=== PATIENT | female | born 1950 | race Hispanic/Latino ===

== ENCOUNTER → 2018-09-03 | Day surgery (SDC) | payer MEDICARE ==
[2018-09-01 14:16] LABS: BASOPHILS % 0.4 % (0.0-1.0); EOSINOPHILS # (AUTO) 0.1 (0.0-0.4); EOSINOPHILS % 2.9 % (0.0-6.0); HEMATOCRIT 37.1 % (34.2-44.1); HEMOGLOBIN 12.5 g/dL (12.0-16.0); LYMPHOCYTES % 34.1 % (18.0-39.1); MEAN CORPUSCULAR HEMOGLOBIN 32.2 pg (28-32); MEAN CORPUSCULAR HGB CONC 33.7 g/dL (31-35); MEAN CORPUSCULAR VOLUME 95.6 fL (81-99); MONOCYTES # (AUTO) 0.4 (0.2-0.8); MONOCYTES % 15.4 % (4.4-11.3); NEUTROPHILS # (AUTO) 1.3 (2.1-6.9); NEUTROPHILS % 47.2 % (38.7-80.0); PLATELET COUNT 97 x10e3/uL (140-360); RED BLOOD COUNT 3.88 x10e6/uL (3.6-5.1); RED CELL DISTRIBUTION WIDTH 14.8 % (11.7-14.4)
[2018-09-01 14:29] LABS: INR 1.19; PROTHROMBIN TIME 16.2 seconds (11.9-14.5)
[2018-09-01 14:30] LABS: PARTIAL THROMBOPLASTIN TIME 38.9 seconds (23.8-35.5)
[2018-09-01 14:37] LABS: ALANINE AMINOTRANSFERASE 22 IU/L (0-55); ALBUMIN/GLOBULIN RATIO 0.7 (0.8-2.0); ALKALINE PHOSPHATASE 192 IU/L (40-150); ANION GAP 9.1 mmol/L (8-16); BLOOD UREA NITROGEN 17 mg/dL (7-26); BUN/CREATININE RATIO 24 (6-25); CALCIUM 8.9 mg/dL (8.4-10.2); CARBON DIOXIDE 27 mmol/L (22-29); CHLORIDE 102 mmol/L (98-107); CREATININE, SERUM 0.72 mg/dL (0.57-1.11); EST GLOMERULAR FILTRATION RATE > 60 ML/MIN (60-); GLUCOSE 239 mg/dL (74-118); POTASSIUM 4.1 mmol/L (3.5-5.1); SODIUM 134 mmol/L (136-145)
[~2018-09-03] MED LIST: AZATHIOPRINE50 MG PO; CALCIUM + VITA1 EACH PO; CEFTRIAXONE SOD 1 GM/NS 50 ML 50 ML IV ONE; GENERLAC10 GM/15 M PO; IOPAMIDOL 610MG/1ML 300 MG/ML VIAL IV ONE; LIDOCAINE HCL 2% LOCAL INJ 5 ML SDV VIAL INJ ONE; LOSARTAN POTASS25 MG PO; METFORMIN HCL500 MG PO; METOPROLOL SUCC25 MG PO; MIDAZOLAM HCL 2 MG/2 ML VIAL ONE; OMEPRAZOLE40 MG PO; ONDANSETRON HCL INJ 2MG/ML 2ML 2 MG/ML VIAL ONE; PROPOFOL IV EMULSION 10 MG/ML 20 ML VIAL ONE; SEVOFLURANE INHAL SOLN 250 ML PEN BTL ONE; VITAMIN C500 M1 PO
--- OUTSIDE RECORDS SUMMARY | 2018-09-03 06:31 | XMS REPORT | Clinical Summary ---
Author Author TOSHIA [facility] Address Unknown Phone Unavailable Care Team Providers Care Senior Staff Accountant Name Role Phone Mando--Feliz Carpenter PCP Allergies No Known Allergies Medications End Date Status Medication Sig Dispensed Refills Start Date Active metFORMIN (GLUCOPHAGE-XR) Take 500 mg 0 500 MG 24 hr tablet by mouth 4 daily. Active metoprolol (TOPROL-XL) 25 Take 25 mg by 0 MG 24 hr tablet mouth daily. 4 Active loratadine (CLARITIN) 10 Take 10 mg by 0 mg tablet mouth daily. 4 Active calcium carbonate-vitamin Take 2 0 D3 (CALCIUM 600 WITH tablets by VITAMIN D3) 600 mouth daily. mg(1,500mg) -500 unit Cap Active omeprazole (PRILOSEC) 40 Take 40 mg by 0 MG capsule mouth daily as needed . Active lactulose (CHRONULAC) 10 Take 20 g by 0 gram/15 mL (15 mL) mouth 2 (two) solution times daily. 11/19/2018 Active azaTHIOprine (IMURAN) 50 Take 1 tablet 90 tablet 2 mg tabletIndications: (50 mg total) 8 Metabolic syndrome, by mouth Immunity status testing, daily. Cirrhosis of liver without ascites, unspecified hepatic cirrhosis type (HCC), Autoimmune hepatitis (HCC), Cancer screening Active rifAXIMin 550 mg Take 1 tablet 60 tablet 11 TabIndications: Cirrhosis (550 mg 8 of liver without ascites, total) by unspecified hepatic mouth 2 (two) cirrhosis type (HCC), times daily. Portal hypertension (HCC), Hepatic encephalopathy (HCC), Secondary esophageal varices without bleeding (HCC), Autoimmune hepatitis (HCC), Other fatigue, Weight gain, Immunity status testing Active losartan (COZAAR) 25 MG 0 tabletIndications: 8 Cirrhosis of liver without ascites, unspecified hepatic cirrhosis type (HCC), Portal hypertension (HCC), Hepatic encephalopathy (HCC), Secondary esophageal varices without bleeding (HCC), Autoimmune hepatitis (HCC), Other fatigue, Weight gain, Immunity status testing Active hydroxychloroquine 400 mg=2 tab, 0 (PLAQUENIL) 200 mg PO,BID , # 60 8 tabletIndications: tab, 0 Cirrhosis of liver Refill(s) without ascites, unspecified hepatic cirrhosis type (HCC), Portal hypertension (HCC), Hepatic encephalopathy (HCC), Secondary esophageal varices without bleeding (HCC), Autoimmune hepatitis (HCC), Other fatigue, Weight gain, Immunity status testing 05/24/2019 Active spironolactone Take 1 tablet 30 tablet 5 (ALDACTONE) 50 MG (50 mg total) 8 tabletIndications: by mouth Cirrhosis of liver daily. without ascites, unspecified hepatic cirrhosis type (HCC), Portal hypertension (HCC), Hepatic encephalopathy (HCC), Secondary esophageal varices without bleeding (HCC), Autoimmune hepatitis (HCC), Other fatigue, Weight gain, Immunity status testing 05/24/2019 Active furosemide (LASIX) 20 MG Take 1 tablet 30 tablet 5 tabletIndications: (20 mg total) 8 Cirrhosis of liver by mouth without ascites, daily. unspecified hepatic cirrhosis type (HCC), Portal hypertension (HCC), Hepatic encephalopathy (HCC), Secondary esophageal varices without bleeding (HCC), Autoimmune hepatitis (HCC), Other fatigue, Weight gain, Immunity status testing Active rifAXIMin 550 mg Take 1 tablet 60 tablet 11 TabIndications: Cirrhosis (550 mg 8 of liver without ascites, total) by unspecified hepatic mouth 2 (two) cirrhosis type (HCC), times daily. Portal hypertension (HCC), Hepatic encephalopathy (HCC), Secondary esophageal varices without bleeding (HCC), Autoimmune hepatitis (HCC), Other fatigue, Weight gain, Immunity status testing 05/24/2018 Discontinued lisinopril Take 5 mg by 0 (PRINIVIL,ZESTRIL) 5 MG mouth daily. 5 tablet 05/24/2018 Discontinued lactulose (CEPHULAC) 10 Take 10 g by 0 gram packet mouth 2 (two) times daily. 05/24/2018 Discontinued rifAXIMin 550 mg Tab Take 550 mg 0 by mouth 2 (two) times daily. 11/19/2017 Discontinued azaTHIOprine (IMURAN) 50 Take 1 tablet 90 tablet 1 mg tabletIndications: (50 mg total) 7 Metabolic syndrome, by mouth Immunity status testing, daily. Cirrhosis of liver without ascites, unspecified hepatic cirrhosis type (HCC) Active Problems Problem Noted Date Autoimmune hepatitis 12/12/2017 DIXON (nonalcoholic steatohepatitis) 12/12/2017 Cirrhosis 11/22/2016 Last Assessment & Plan: Diagnosed by liver biopsy in 2002. Her cirrhosis is decompensated with hepatic encephalopathy. Etiology of her cirrhosis is uncertain. Possible differentials are non-alcoholic fatty liver disease vs autoimmune hepatitis. Liver biopsies in 2002 and 2007 showed chronic portal inflammation which is not typical of fatty liver disease. It also showed steatosis. We will obtain her liver biopsy slides and review at the pathology conference to determine the etiology. Her MELD-Na is 9 which is early for OLT evaluation. Portal hypertension 11/22/2016 Last Assessment & Plan: Manifested by splenomegaly and hepatic encephalopathy. Hepatic encephalopathy 11/22/2016 Last Assessment & Plan: Grade 0-1. Well controlled on lactulose and rifaximin. Lactulose to titrate to 2-3 BMs a day. Varices, esophageal 11/22/2016 Last Assessment & Plan: EGD on 09/2015 showed no varices. Follow-up with Dr. Martinez for repeat in 2017. Metabolic syndrome 11/22/2016 Last Assessment & Plan: She meets criteria for metabolic syndrome including obesity, diabetes and hypertriglyceridemia. Metabolic syndrome is a known risk factor of non-alcoholic fatty liver disease. We recommend at least 10% weight loss and better control of diabetes and hypertriglyceridemia. Immunity status testing 11/22/2016 Last Assessment & Plan: CDC recommends that all patients with chronic liver disease, regardless of etiology, should be immunized to prevent hepatitis A and hepatitis B if they are not already immune. This should be done in addition to other age-appropriate vaccines. She is immune to hepatitis A but not against hepatitis B and so we recommend 3 series vaccination for hepatitis B. Screening for malignant neoplasm 11/22/2016 Last Assessment & Plan: Cirrhosis, regardless of etiology, is a risk factor for hepatocellular carcinoma (HCC), with an annual incidence of 1.5-7%. We recommend surveillance for HCC with abdominal imaging and alphafetoprotein every 6 months. US on 10/01/16 was negative for any suspicious masses. We will order an MRI for better characterization to rule out suspicious masses due to long history of cirrhosis since 2002 and increased risk of HCC. We will check AFP today. Encounters Care Team Description Date Type Specialty Linda Marquez PA-C Medication Dose Change 06/07/2018 Telephone Linda Johnson PA-C 06/06/2018 Orders Only HepatAnnette Fortune RN Xifaxan 06/01/2018 Telephone Annette Brown RN 05/28/2018 Abstract HepatAnnette Fortune RN 05/26/2018 Abstract Hepatology Ty Starkey MD Diller, Karen Cardwell, PA-C Cirrhosis of liver without ascites, unspecified hepatic cirrhosis type (HCC) (Primary Dx); Portal hypertension ; Hepatic encephalopathy ; Secondary esophageal varices without bleeding (HCC); Autoimmune hepatitis (HCC); Other fatigue; Weight gain; Immunity status testing; Screening for cancer; Pancreatic lesion 05/24/2018 Office Visit Hepatology Ty Starkey MD Cirrhosis of liver without ascites, unspecified hepatic cirrhosis type (HCC) 05/17/2018 Hospital Radiology Encounter Counts, ARACELIS Tripp Cirrhosis of liver without ascites, unspecified hepatic cirrhosis type (HCC) (Primary Dx) 05/12/2018 Orders Only HepatAnnette Fortune RN Cirrhosis of liver without ascites, unspecified hepatic cirrhosis type (HCC) (Primary Dx) 05/12/2018 Orders Only Annette Brown RN Cirrhosis of liver without ascites, unspecified hepatic cirrhosis type (HCC) (Primary Dx) 01/27/2018 Orders Only yT Silveira MD Diller, Karen Cardwell, PA-C Cirrhosis of liver without ascites, unspecified hepatic cirrhosis type (HCC) (Primary Dx); Metabolic syndrome; Immunity status testing; Autoimmune hepatitis (HCC); Cancer screening; DIXON (nonalcoholic steatohepatitis) 11/19/2017 Office Visit Hepatology Ty Starkey MD Cirrhosis of liver without ascites, unspecified hepatic cirrhosis type (HCC) 11/09/2017 Orders Only Lab Ty Starkey MD Cirrhosis of liver without ascites, unspecified hepatic cirrhosis type (HCC) 11/09/2017 Hospital Radiology Encounter Ty Starkey MD 11/09/2017 Outside Orders Central Scheduling Annette Silva RN Cirrhosis of liver without ascites, unspecified hepatic cirrhosis type (HCC) (Primary Dx) 10/09/2017 Orders Only Hepatology after 09/02/2017 Family History Medical History Relation Name Comments Hypertension Father Kidney disease Father Diabetes Mother Hypertension Mother Kidney disease Mother Diabetes Sister Tuberculosis Sister Relation Name Status Comments Father Mother Sister Social History Date Tobacco Use Types Packs/Day Years Used Never Smoker Alcohol Use Drinks/Week oz/Week Comments No Sex Assigned at Date Recorded Not on file Industry Job Start Date Occupation Not on file Not on file Not on file Travel End Travel History Travel Start No recent travel history available. Last Filed Vital Signs Time Taken Vital Sign Reading 05/24/2018 2:25 PM CDT Blood Pressure 133/79 05/24/2018 2:25 PM CDT Pulse 74 05/24/2018 2:25 PM CDT Temperature 36.5 C (97.7 F) 05/24/2018 2:25 PM CDT Respiratory Rate 20 05/24/2018 2:25 PM CDT Oxygen Saturation 98% - Inhaled Oxygen - Concentration 05/24/2018 2:25 PM CDT Weight 81.9 kg (180 lb 8 oz) 05/24/2018 2:25 PM CDT Height 154.9 cm (5' 1") 05/24/2018 2:25 PM CDT Body Mass Index 34.11 Plan of Treatment Care Team Description Date Type Specialty Resource, [facility] F 11/26/2018 Office Visit Hepatology Health Maintenance Due Date Last Done Comments INFLUENZA VACCINE 05/10/2018 Procedures Comments Procedure Name Priority Date/Time Associated Diagnosis IMMUNOGLOBULIN G (IGG) Routine 05/24/2018 Cirrhosis of liver 4:07 PM CDT without ascites, unspecified hepatic cirrhosis type (HCC) Portal hypertension Hepatic encephalopathy Secondary esophageal varices without bleeding (HCC) Autoimmune hepatitis (HCC) Other fatigue Weight gain Immunity status testing HEPATITIS B SURFACE Routine 05/24/2018 Cirrhosis of liver ANTIBODY 4:07 PM CDT without ascites, unspecified hepatic cirrhosis type (HCC) Portal hypertension Hepatic encephalopathy Secondary esophageal varices without bleeding (HCC) Autoimmune hepatitis (HCC) Other fatigue Weight gain Immunity status testing TSH Routine 05/24/2018 Cirrhosis of liver 4:07 PM CDT without ascites, unspecified hepatic cirrhosis type (HCC) Portal hypertension Hepatic encephalopathy Secondary esophageal varices without bleeding (HCC) Autoimmune hepatitis (HCC) Other fatigue Weight gain Immunity status testing MR ABDOMEN WITH/WITHOUT Routine 05/17/2018 Cirrhosis of liver IV CONTRAST 11:04 AM CDT without ascites, unspecified hepatic cirrhosis type (HCC) PROTHROMBIN TIME/INR Routine 05/14/2018 8:49 AM CDT HEPATIC FUNCTION PANEL Routine 05/14/2018 8:49 AM CDT BASIC METABOLIC PANEL (7) Routine 05/14/2018 8:49 AM CDT CBC W/PLT COUNT & AUTO Routine 05/14/2018 DIFFERENTIAL 8:49 AM CDT ALPHA FETOPROTEIN (AFP), Routine 05/14/2018 Cirrhosis of liver TUMOR MARKER 8:49 AM CDT without ascites, unspecified hepatic cirrhosis type (HCC) Metabolic syndrome Immunity status testing Autoimmune hepatitis (HCC) Cancer screening PROTHROMBIN TIME/INR Routine 02/24/2018 Cirrhosis of liver 12:00 AM CDT without ascites, unspecified hepatic cirrhosis type (HCC) Metabolic syndrome Immunity status testing Autoimmune hepatitis (HCC) Cancer screening CBC W/PLT COUNT & AUTO Routine 02/24/2018 Cirrhosis of liver DIFFERENTIAL 12:00 AM CDT without ascites, unspecified hepatic cirrhosis type (HCC) Metabolic syndrome Immunity status testing Autoimmune hepatitis (HCC) Cancer screening HEPATIC FUNCTION PANEL Routine 02/24/2018 Cirrhosis of liver 12:00 AM CDT without ascites, unspecified hepatic cirrhosis type (HCC) Metabolic syndrome Immunity status testing Autoimmune hepatitis (HCC) Cancer screening BASIC METABOLIC PANEL (7) Routine 02/24/2018 Cirrhosis of liver 12:00 AM CDT without ascites, unspecified hepatic cirrhosis type (HCC) Metabolic syndrome Immunity status testing Autoimmune hepatitis (HCC) Cancer screening PROTHROMBIN TIME/INR Routine 11/19/2017 Cirrhosis of liver 3:19 PM CDT without ascites, unspecified hepatic cirrhosis type (HCC) Metabolic syndrome Immunity status testing Autoimmune hepatitis (HCC) Cancer screening CBC W/PLT COUNT & AUTO Routine 11/09/2017 Cirrhosis of liver DIFFERENTIAL 12:13 PM CDT without ascites, unspecified hepatic cirrhosis type (HCC) ALPHA FETOPROTEIN (AFP), Routine 11/09/2017 Cirrhosis of liver TUMOR MARKER 12:13 PM CDT without ascites, unspecified hepatic cirrhosis type (HCC) CBC W/PLT COUNT & AUTO Routine 11/09/2017 Cirrhosis of liver DIFFERENTIAL 12:13 PM CDT without ascites, unspecified hepatic cirrhosis type (HCC) HEPATIC FUNCTION PANEL Routine 11/09/2017 Cirrhosis of liver 12:13 PM CDT without ascites, unspecified hepatic cirrhosis type (HCC) BASIC METABOLIC PANEL (7) Routine 11/09/2017 Cirrhosis of liver 12:13 PM CDT without ascites, unspecified hepatic cirrhosis type (HCC) MR ABDOMEN WITH/WITHOUT Routine 11/09/2017 Cirrhosis of liver IV CONTRAST 11:38 AM CDT without ascites, unspecified hepatic cirrhosis type (HCC) POCT-CREATININE Routine 11/09/2017 11:18 AM CDT after 09/02/2017 Results * Hepatitis B surface antibody (05/24/2018 4:07 PM CDT) Hep B S Ab <8.0 <8.0 mIU/mL [facility] Specimen Blood Performing Organization Address City/State/Zipcode Phone Number [facility] [address] [place] [address] [facility] * TSH (05/24/2018 4:07 PM CDT) TSH 1.32 0.35 - 4.94 uIU/mL [facility] Specimen Blood Performing Organization Address City/State/Zipcode Phone Number [facility] [address], [place] [id number] [facility] * Immunoglobulin G (IgG) (05/24/2018 4:07 PM CDT) IgG 2,199 (H) 540 - 1,822 mg/dL [facility] Specimen Blood Performing Organization Address City/State/Zipcode Phone Number [facility] [address], [place] [id number] [facility] * MR abdomen with/without IV contrast (05/17/2018 11:04 AM CDT) Only the most recent of 2 results within the time period is included. Narrative Performed At FINAL REPORT [facility] MRI of the abdomen dated May 17, 2018 COMPARISON: November 09, 2017 Comment: Multiplanar T1 and T2-weighted images of the abdomen, postcontrast axial and coronal T1-weighted images of the abdomen were obtained. Liver is cirrhotic in appearance with the ureter margins. No abnormal enhancement or suspicious mass is seen in the liver. Spleen is in upper limits of normal in size. The splenic, superior mesenteric, portal, and hepatic veins are patent. Main portal vein measures approximately 10 mm in diameter. Paraesophageal varices is present. Pancreas is normal in caliber. A 4 mm cyst is seen in the tail of the pancreas. No pancreatic duct dilatation or enhancing pancreatic mass is noted. Both adrenals unremarkable. Kidneys are normal in size and functioning. No mass, adenopathy, ascites is seen in the abdomen. The visualized small and large bowel are unremarkable. IMPRESSION: 1. Cirrhosis with splenomegaly and portal hypertension. 2. No suspicious hepatic mass. 3. Small nonspecific cyst in the tail of the pancreas. Signed: Albert Watson MD Report Verified Date/Time:05/17/2018 15:20:04 Reading Location: [address] Radiology Reading Room Procedure Note Interface, External Ris In - 05/17/2018 3:22 PM CDT FINAL REPORT MRI of the abdomen dated May 17, 2018 COMPARISON: November 09, 2017 Comment: Multiplanar T1 and T2-weighted images of the abdomen, postcontrast axial and coronal T1-weighted images of the abdomen were obtained. Liver is cirrhotic in appearance with the ureter margins. No abnormal enhancement or suspicious mass is seen in the liver. Spleen is in upper limits of normal in size. The splenic, superior mesenteric, portal, and hepatic veins are patent. Main portal vein measures approximately 10 mm in diameter. Paraesophageal varices is present. Pancreas is normal in caliber. A 4 mm cyst is seen in the tail of the pancreas. No pancreatic duct dilatation or enhancing pancreatic mass is noted. Both adrenals unremarkable. Kidneys are normal in size and functioning. No mass, adenopathy, ascites is seen in the abdomen. The visualized small and large bowel are unremarkable. IMPRESSION: 1. Cirrhosis with splenomegaly and portal hypertension. 2. No suspicious hepatic mass. 3. Small nonspecific cyst in the tail of the pancreas. Signed: Albert Watson MD Report Verified Date/Time: 05/17/2018 15:20:04 Reading Location: [address] Radiology Reading Room Performing Organization Address City/[facility] Phone Number [facility] * Alpha fetoprotein (AFP), tumor marker (05/14/2018 8:49 AM CDT) Only the most recent of 2 results within the time period is included. AFP, Serum, Tumor Marker 5.2Comment: Dami ECLIA 0.0 - 8.3 ng/mL [facility] 1 methodology Specimen Blood Narrative Performed At Performed at: - [facility] [address], [id number] Division Human Resources Manager: Michael Agarwal MD, Phone:[phone] Performing Organization Address City/[facility] VegascoInternet [employer] Phone Number [facility] * Prothrombin time/INR (05/14/2018 8:49 AM CDT) Only the most recent of 3 results within the time period is included. INR 1.2 0.8 - 1.2 [facility] Comment: Reference interval is for non-anticoagulated patients. Suggested INR therapeutic range for Vitamin K antagonist therapy: Standard Dose (moderate intensity therapeutic range): 2.0 - 3.0 Higher intensity therapeutic range 2.5 - 3.5 Prothrombin Time 12.8 (H) 9.1 - 12.0 sec [facility] 1 Narrative Performed At Performed at:01 - [facility] [address] [facility], [id number] Division Human Resources Manager: Michael Agarwal MD, Phone:[phone] Performing Organization Address City/State/Zipcode Phone Number [facility] * CBC with platelet count + automated diff (05/14/2018 8:49 AM CDT) Only the most recent of 2 results within the time period is included. WBC 2.5 (LL) 3.4 - 10.8 x10E3/uL [facility] 1 RBC 3.84 3.77 - 5.28 x10E6/uL [facility] 1 Hemoglobin 13.2 11.1 - 15.9 g/dL [facility] 1 Hematocrit 37.9 34.0 - 46.6 % [facility] 1 MCV 99 (H) 79 - 97 fL [facility] 1 MCH 34.4 (H) 26.6 - 33.0 pg [facility] 1 MCHC 34.8 31.5 - 35.7 g/dL [facility] 1 RDW 14.8 12.3 - 15.4 % [facility] 1 Platelets 77 (LL) 150 - 379 x10E3/uL [facility] Comment: Platelet count verified by examination of peripheral blood smear. Decreased. % Neutros 51 Not Estab. % [facility] % Lymphs 30 Not Estab. % [facility] % Monos 16 Not Estab. % [facility] % Eos 2 Not Estab. % [facility] % Baso 1 Not Estab. % [facility] # Neutros 1.3 (L) 1.4 - 7.0 x10E3/uL [facility] # Lymphs 0.8 0.7 - 3.1 x10E3/uL [facility] # Monos 0.4 0.1 - 0.9 x10E3/uL [facility] # Eos 0.1 0.0 - 0.4 x10E3/uL [facility] 1 Baso (Absolute) 0.0 0.0 - 0.2 x10E3/uL [facility] % Immature Grans 0 Not Estab. % [facility] # Immature Grans 0.0 0.0 - 0.1 x10E3/uL [facility] 1 Hematology Comments: Note:Comment: Verified by [facility] 1 microscopic examination. Narrative Performed At Performed at: [id number] Division Human Resources Manager: Michael Agarwal MD, Phone:[phone] Performing Organization Address [facility] Phone Number [facility] * Hepatic function panel (05/14/2018 8:49 AM CDT) Only the most recent of 3 results within the time period is included. Protein, Total, Serum 7.3 6.0 - 8.5 g/dL [facility] Albumin, Serum 3.3 (L) 3.6 - 4.8 g/dL [facility] 1 Bilirubin, Total 0.8 0.0 - 1.2 mg/dL [facility] 1 Bilirubin, Direct 0.26 0.00 - 0.40 mg/dL [facility] 1 Alkaline Phosphatase, S 116 39 - 117 IU/L [facility] 1 AST (SGOT) 51 (H) 0 - 40 IU/L [facility] 1 ALT (SGPT) 30 0 - 32 IU/L [facility] 1 Narrative Performed At Performed at: [id number] Division Human Resources Manager: Michael Agarwal MD, Phone:[phone] Performing Organization Address [facility] Phone Number [facility] * Basic Metabolic Panel (05/14/2018 8:49 AM CDT) Only the most recent of 3 results within the time period is included. Glucose, Serum 136 (H) 65 - 99 mg/dL [facility] BUN 18 8 - 27 mg/dL [facility] Creatinine, Serum 0.53 (L) 0.57 - 1.00 mg/dL [facility] 1 eGFR If NonAfricn Am 100 >59 mL/min/1.73 [facility] 1 eGFR If Africn Am 115 >59 mL/min/1.73 [facility] 1 BUN/Creatinine Ratio 34 (H) 12 - 28 [facility] 1 Sodium, Serum 142 134 - 144 mmol/L [facility] 1 Potassium, Serum 4.2 3.5 - 5.2 mmol/L [facility] 1 Chloride, Serum 105 96 - 106 mmol/L [facility] 1 Carbon Dioxide, Total 24 20 - 29 mmol/L [facility] 1 Calcium, Serum 8.9 8.7 - 10.3 mg/dL [facility] 1 Narrative Performed At Performed at:01 - [facility] [address], [id number] Division Human Resources Manager: Michael Agarwal MD, Phone:[phone] Performing Organization Address City/State/Zipcode Phone Number [facility] * CBC with platelet count + automated diff (11/09/2017 12:13 PM CDT) WBC 3.5 3.5 - 10.5 K/L [facility] RBC 4.02 3.93 - 5.22 M/L [facility] Hemoglobin 13.1 11.2 - 15.7 GM/DL [facility] Hematocrit 39.1 34.1 - 44.9 % [facility] MCV 97.3 (H) 79.4 - 94.8 fL [facility] MCH 32.6 (H) 25.6 - 32.2 pg [facility] MCHC 33.5 32.2 - 35.5 GM/DL [facility] RDW 13.2 11.7 - 14.4 % [facility] Platelets 78 (L) 150 - 450 K/CU MM [facility] MPV 12.2 9.4 - 12.3 fL [facility] nRBC 0 0 - 0 /100 WBC [facility] % Neutros 51 % [facility] % Lymphs 35 % [facility] % Monos 12 % [facility] % Eos 1 % [facility] % Baso 1 % [facility] # Neutros 1.79 1.56 - 6.13 K/L [facility] # Lymphs 1.21 1.18 - 3.74 K/L [facility] # Monos 0.43 (H) 0.24 - 0.36 K/L [facility] # Eos 0.05 0.04 - 0.36 K/L [facility] # Baso 0.02 0.01 - 0.08 K/L [facility] Immature 0 0 - 1 % [facility] Granulocytes-Relative [facility] Specimen Blood Performing Organization Address City/[facility]/Zipcode Phone Number [address] [address] [facility] * POC-Creatinine (11/09/2017 11:18 AM CDT) POC-Creatinine 0.5 (L)Comment: TESTED AT 0.6 - 1.3 mg/dL [address] [address] POC-EGFR 124 mL/min/1.73M2 [facility] Specimen Blood Performing Organization Address City/[facility]/Zipcode Phone Number [address] [address] [facility] after 09/02/2017 Insurance Payer Benefit Subscriber ID Type Phone Address Plan / Group [facility] - AARP/MEDIC xxxxxxxxx MEDICARE MGD CARE ARE COMPLETE Advance Directives For more information, please contact: [address] [address] Date Inactivated Comments Code Status Date Activated 01/14/2017 8:28 PM Full Code 01/14/2017 11:39 AM This code status was determined by: Patient
--- OUTSIDE RECORDS SUMMARY | 2018-09-03 06:32 | XMS REPORT | Summary of Care ---
Author Author [facility] Organization [facility] Address Unknown Phone Unavailable Encounter HQ Encntr_alias(FIN) [id number] Date(s): 12/08/17 - 12/09/17 [facility] [address], [address] [place], [place] [address] [phone] Vital Signs No data available for this section Problem List Condition Effective Dates Status Health Status Informant Simple Active obesity(Confirmed) Allergies, Adverse Reactions, Alerts No data available for this section Medications No data available for this section Results No data available for this section Immunizations No data available for this section Procedures Procedure Date Related Diagnosis Body Site Status Cholecystectomy Completed Social History Social History Type Response Smoking Status Never smoker; Exposure to Tobacco Smoke None; Cigarette Smoking Last 365 Days No; Reg Smoking Cessation Counseling No entered on: 11/17/17 Assessment and Plan No data available for this section
--- OUTSIDE RECORDS SUMMARY | 2018-09-03 06:32 | XMS REPORT | Summary of Care ---
Author Author [facility] [place] Organization [facility] [place] Address Unknown Phone Unavailable Encounter HQ Rachelle(FIN) [id number] Date(s): 12/21/17 - 12/21/17 [facility] [place] [address] [place] [phone] Discharge Disposition: Home or Self Care Attending Physician: Dayton Joe MD Vital Signs No data available for this section Problem List Condition Effective Dates Status Health Status Informant Diabetes(Confirmed) Active Acid reflux Active disease(Confirmed) Hypertension(Confirm Active ed) Radiculopathy(Confir Active med)1 Simple Active obesity(Confirmed) 1L3-4 Allergies, Adverse Reactions, Alerts Substance Reaction Severity Status NKDA Active Medications No data available for this section Results No data available for this section Immunizations No data available for this section Procedures Procedure Date Related Diagnosis Body Site Status Biopsy of liver Completed section Completed Cholecystectomy Completed Colonoscopy Completed Excision of cyst Completed Lumpectomy of breast Completed Social History Social History Type Response Smoking Status Never smoker; Exposure to Tobacco Smoke None; Cigarette Smoking Last 365 Days No; Reg Smoking Cessation Counseling No entered on: 12/18/17 Assessment and Plan No data available for this section
--- OUTSIDE RECORDS SUMMARY | 2018-09-03 06:32 | XMS REPORT | Summary of Care ---
Author Author [facility] [place] Organization [facility] [place] Address Unknown Phone Unavailable Encounter HQ Yakovntr_alidelroy(FIN) [id number] Date(s): 10/01/16 - 10/01/16 [facility] [place] [address] [place] [address]- [phone] Discharge Disposition: Home or Self Care Attending Physician: Jordan Martinez MD Vital Signs No data available for this section Problem List No data available for this section Allergies, Adverse Reactions, Alerts No data available for this section Medications No data available for this section Results No data available for this section Immunizations No data available for this section Procedures No data available for this section Social History No data available for this section Assessment and Plan No data available for this section
--- OUTSIDE RECORDS SUMMARY | 2018-09-03 06:32 | XMS REPORT | Summary of Care ---
Author Author [facility] Organization [facility] Address Unknown Phone Unavailable Encounter HQ Encntr_alidelroy(FIN) [id number] Date(s): 12/07/17 - 12/07/17 [facility] [address] [place], [place] [address] [phone] Discharge Disposition: Home or Self Care Attending Physician: Damon Abdi MD Referring Physician: Joya Thorne DO Vital Signs No data available for this section Problem List Condition Effective Dates Status Health Status Informant Simple Active obesity(Confirmed) Allergies, Adverse Reactions, Alerts No data available for this section Medications gabapentin 300 mg oral capsule See Instructions, PO, Take one cap PO at Bedtime x 3 nights, then 1 cap PO BID x 3 days, then 1 cap PO TID thereafter, # 90 cap, 0 Refill(s), Pharmacy: [id number] Start Date: 12/08/17 Status: Ordered Results No data available for this section [...]
--- OUTSIDE RECORDS SUMMARY | 2018-09-03 06:32 | XMS REPORT | Summary of Care ---
Author Author [facility] Organization [facility] Address Unknown Phone Unavailable Encounter HQ Nehemiasr_zac(FIN) [id number] Date(s): 12/16/17 - 12/17/17 [facility] [address], [address] [place] [phone] Vital Signs No data available for this [...]
--- OUTSIDE RECORDS SUMMARY | 2018-09-03 06:32 | XMS REPORT | Summary of Care ---
Author Author [facility] [place] Organization [facility] [place] Address Unknown Phone Unavailable Encounter HQ Encntr_alias(FIN) [id number] Date(s): 12/08/17 - 12/09/17 [facility] [place] [address], [address] [place], [place] [address] [phone] Vital Signs No data available for this [...]
--- OUTSIDE RECORDS SUMMARY | 2018-09-03 06:32 | XMS REPORT | Summary of Care ---
Author Author [facility] Neurosurgery [facility] Organization [facility] Address Unknown Phone Unavailable Encounter HQ Encntr_alidelroy(FIN) [id number] Date(s): 12/07/17 - 12/07/17 [facility] [address] [address] [place], [place] [address] [phone] Discharge Disposition: Home or Self Care Attending [...] thereafter, # 90 cap, 0 Refill(s), Pharmacy: [id number] Start Date: 12/08/17 Status: Ordered [...]
--- OUTSIDE RECORDS SUMMARY | 2018-09-03 06:32 | XMS REPORT | Summary of Care ---
Author Author [facility] Organization [facility] Address Unknown Phone Unavailable Encounter BERHANE Bush(ROOSEVELT) [id number] Date(s): 12/24/17 - 12/24/17 [facility] [address] [place] [address]- [phone] Discharge Disposition: Home or Self Care Attending Physician: Yin Venegas MD Referring Physician: Yin Venegas MD Vital Signs 1 2 3 Most recent to oldest [Reference Range]: 154.94 cm (12/18/17 4:05 PM) Height 98.0 DegF (12/18/17 4:10 PM) Temperature Oral [96.4-99.1 DegF] 145/71 mmHg *HI* (12/24/17 10:45 AM) 140/78 mmHg (12/24/17 10:30 AM) 143/82 mmHg *HI* (12/24/17 10:15 AM) Blood Pressure [90-140/60-90 mmHg] 20 BRMIN (12/24/17 10:45 AM) 17 BRMIN (12/24/17 10:30 AM) 18 BRMIN (12/24/17 10:15 AM) Respiratory Rate [14-20 BRMIN] 72 bpm (12/18/17 4:10 PM) Peripheral Pulse Rate [60-100 bpm] 79.205 kg (12/18/17 4:05 PM) Weight 32.99 m2 (12/18/17 4:05 PM) Body Mass Index Problem List Condition Effective Dates Status Health Status Informant Diabetes(Confirmed) Active Acid reflux Active disease(Confirmed) Hypertension(Confirm Active ed) Radiculopathy(Confir Active med)1 Simple Active obesity(Confirmed) 1L3-4 Allergies, Adverse Reactions, Alerts Substance Reaction Severity Status NKDA Active Medications ANES acetaminophen 1,000 mg, Route: PO, Drug form: TAB, ONCE, Dosing Weight 79.205, kg, PRN Pain Sc ore 1-3, Start date: 12/24/17 13:26:00 CDT Start Date: 12/24/17 Stop Date: 12/24/17 Status: Discontinued ANES albuterol 0.083% inhalation solution 2.49 mg, Route: NEB, Q20Min, Dosing Weight 79.205, kg, PRN Wheezing, Priority: S TAT, Start date: 12/24/17 13:26:00 CDT, Duration: 30 day, Stop date: 01/23/18 13 :25:00 CDT Start Date: 12/24/17 Stop Date: 12/24/17 Status: Discontinued ANES dexamethasone 4 mg, Route: IVP, ONCE, Dosing Weight 79.205, kg, PRN Nausea & Vomiting, Start date: 12/24/17 13:26:00 CDT Start Date: 12/24/17 Stop Date: 12/24/17 Status: Discontinued ANES diphenhydrAMINE 12.5 mg, Route: IVP, Drug form: INJ, Q6H, Dosing Weight 79.205, kg, PRN Itching, Start date: 12/24/17 13:26:00 CDT, Duration: 30 day, Stop date: 01/23/18 13:25: 00 CDT Start Date: 12/24/17 Stop Date: 12/24/17 Status: Discontinued ANES fentaNYL 25 microgram, Route: IVP, Q5Min, Dosing Weight 79.205, kg, PRN, Priority: Routin e, Start date: 12/24/17 13:26:00 CDT, Duration: 4 doses or times, Stop date: Merlin azul # of times, Pain Score 4-10 Start Date: 12/24/17 Stop Date: 12/24/17 Status: Discontinued ANES flumazenil 0.2 mg, Route: IVP, PRN, Dosing Weight 79.205, kg, PRN Benzodiazepine Reversal, Initial dose, Start date: 12/24/17 13:26:00 CDT, Duration: 30 day, Stop date: 13:25:00 CDT Start Date: 12/24/17 Stop Date: 12/24/17 Status: Discontinued ANES hydrALAZINE 5 mg, Route: IVP, Q20Min, Dosing Weight 79.205, kg, PRN Elevated BP, Start date: 12/24/17 13:26:00 CDT, Duration: 2 doses or times, Stop date: Limited # of times Start Date: 12/24/17 Stop Date: 12/24/17 Status: Discontinued ANES HYDROmorphone 0.5 mg, Route: IVP, Q5Min, Dosing Weight 79.205, kg, PRN Pain Score 7-10, Start date: 12/24/17 13:26:00 CDT, Duration: 4 doses or times, Stop date: Limited # of times Start Date: 12/24/17 Stop Date: 12/24/17 Status: Discontinued ANES labetalol 5 mg, Route: IVP, Q5Min, Dosing Weight 79.205, kg, PRN Elevated BP, Start date: 12/24/17 13:26:00 CDT, Duration: 5 doses or times, Stop date: Limited # of times Start Date: 12/24/17 Stop Date: 12/24/17 Status: Discontinued ANES naloxone 0.4 mg, Route: IVP, Q2MIN, Dosing Weight 79.205, kg, PRN Narcotic Reversal, Star t date: 12/24/17 13:26:00 CDT, Duration: 8 doses or times, Stop date: Limited # of times Start Date: 12/24/17 Stop Date: 12/24/17 Status: Discontinued ANES ondansetron 4 mg, Route: IVP, ONCE, Dosing Weight 79.205, kg, PRN Nausea & Vomiting, Start date: 12/24/17 13:26:00 CDT Start Date: 12/24/17 Stop Date: 12/24/17 Status: Discontinued ANES promethazine 6.25 mg, Route: IVPB, ONCE, Dosing Weight 79.205, kg, PRN Nausea & Vomiting, Start date: 12/24/17 13:26:00 CDT Start Date: 12/24/17 Stop Date: 12/24/17 Status: Discontinued azaTHIOprine 50 mg oral tablet 50 mg=1 tab, PO, Daily, # 30 tab, 0 Refill(s) Start Date: 12/18/17 Status: Ordered Calcium 600+D oral tablet 1 tab, PO, Daily, 0 Refill(s) Start Date: 12/18/17 Status: Ordered hydroxychloroquine sulfate 200 mg oral tablet 400 mg=2 tab, PO, Daily, # 60 tab, 0 Refill(s) Start Date: 12/18/17 Status: Ordered Lactated Ringers Injection IV 1000 mL 1,000 mL, Rate: 25 ml/hr, Infuse over: 40 hr, Route: IV, Dosing Weight 79.205 kg , Total Volume: 1,000, Start date: 12/24/17 13:26:00 CDT, Duration: 30 day, Stop date: 01/23/18 13:25:00 CDT, 1.88, m2 Start Date: 12/24/17 Stop Date: 12/24/17 Status: Discontinued Lactated Ringers Injection IV 1000 mL 1,000 mL, Rate: 125 ml/hr, Infuse over: 8 hr, Route: IV, Dosing Weight 79.205 kg , Total Volume: 1,000, Start date: 12/24/17 13:26:00 CDT, Duration: 30 day, Stop date: 01/23/18 13:25:00 CDT, 1.88, m2 Start Date: 12/24/17 Stop Date: 12/24/17 Status: Discontinued lactulose 10 g/15 mL oral syrup 10 gm=15 mL, PO, BID, PRN constipation, # 240 mL, 0 Refill(s) Start Date: 12/18/17 Stop Date: 01/03/18 Status: Ordered Metoprolol Succinate ER 25 mg oral tablet, extended release 25 mg=1 tab, PO, Daily, # 30 tab, 0 Refill(s) Start Date: 12/18/17 Status: Ordered Results ELECTROLYTES Most recent to 1 2 oldest [Reference Range]: Sodium Lvl [135-145 139 mEq/L mEq/L] (12/18/17 4:25 PM) Potassium Lvl 3.9 mEq/L [3.5-5.1 mEq/L] (12/18/17 4:25 PM) Chloride Lvl [95-109 105 mEq/L mEq/L] (12/18/17 4:25 PM) CO2 [24-32 mEq/L] 29 mEq/L (12/18/17 4:25 PM) AGAP [10.0-20.0 8.9 mEq/L mEq/L] *LOW* (5/11/18 4:25 PM) CHEM PANEL Most recent to 1 2 oldest [Reference Range]: Creatinine Lvl 0.63 mg/dL [0.50-1.40 mg/dL] (12/18/17 4:25 PM) eGFR 94 mL/min/1.73m2 1 *NA* (12/18/17 4:25 PM) BUN [7-22 mg/dL] 16 mg/dL (12/18/17 4:25 PM) Glucose Lvl [70-99 188 mg/dL mg/dL] *HI* (12/18/17 4:25 PM) Calcium Lvl 8.6 mg/dL [8.5-10.5 mg/dL] (12/18/17 4:25 PM) 1Result Comment: The eGFR is calculated using the CKD-EPI formula. In most young, healthy individuals the eGFR will be >90 mL/min/1.73m2. The eGFR declines with age. An eGFR of 60-89 may be normal in some populations, particularly the elderly, for whom the CKD-EPI formula has not been extensively validated. Use of the eGFR is not recommended in the following populations: Individuals with unstable creatinine concentrations, including patients and those with serious co-morbid conditions. Patients with extremes in muscle mass or diet. The data above are obtained from the National Kidney Disease Education Program ( NKDEP) which additionally recommends that when the eGFR is used in patients with extremes of body mass index for purposes of drug dosing, the eGFR should be mul tiplied by the estimated BMI. HEMATOLOGY Most recent to 1 2 oldest [Reference Range]: WBC [3.7-10.4 K/CMM] 3.3 K/CMM 2.9 K/CMM *LOW* *LOW* (12/24/17 8:26 AM) (12/18/17 4:25 PM) RBC [4.20-5.40 3.65 M/CMM 3.73 M/CMM M/CMM] *LOW* *LOW* (12/24/17 8:26 AM) (12/18/17 4:25 PM) Hgb [12.0-16.0 g/dL] 12.5 g/dL 12.5 g/dL (12/24/17 8:26 AM) (12/18/17 4:25 PM) Hct [36.0-48.0 %] 36.0 % 36.6 % (12/24/17 8:26 AM) (12/18/17 4:25 PM) MCV [80.0-98.0 fL] 98.7 fL 97.9 fL *HI* (12/18/17 4:25 PM) (12/24/17 8:26 AM) MCH [27.0-31.0 pg] 34.3 pg 33.6 pg *HI* *HI* (12/24/17 8:26 AM) (12/18/17 4:25 PM) MCHC [32.0-36.0 34.8 g/dL 34.3 g/dL g/dL] (12/24/17 8:26 AM) (12/18/17 4:25 PM) RDW [11.5-14.5 %] 14.5 % 14.1 % (12/24/17 8:26 AM) (12/18/17 4:25 PM) MPV [7.4-10.4 fL] 8.9 fL 8.7 fL (12/24/17 8:26 AM) (12/18/17 4:25 PM) Platelet [133-450 79 K/CMM 79 K/CMM K/CMM] *LOW* *LOW* (12/24/17 8:26 AM) (12/18/17 4:25 PM) Segs [45.0-75.0 %] 54.8 % 53.6 % (12/24/17 8:26 AM) (12/18/17 4:25 PM) Lymphocytes 28.3 % 28.0 % [20.0-40.0 %] (12/24/17 8:26 AM) (12/18/17 4:25 PM) Monocytes [2.0-12.0 14.2 % 15.2 % %] *HI* *HI* (12/24/17 8:26 AM) (12/18/17 4:25 PM) Eosinophils [0.0-4.0 2.3 % 2.8 % %] (12/24/17 8:26 AM) (12/18/17 4:25 PM) Basophils [0.0-1.0 0.4 % 0.4 % %] (12/24/17 8:26 AM) (12/18/17 4:25 PM) Segs-Bands # 1.8 K/CMM 1.5 K/CMM [1.5-8.1 K/CMM] (12/24/17 8:26 AM) (12/18/17 4:25 PM) Lymphocytes # 0.9 K/CMM 0.8 K/CMM [1.0-5.5 K/CMM] *LOW* *LOW* (12/24/17 8:26 AM) (12/18/17 4:25 PM) Monocytes # [0.0-0.8 0.5 K/CMM 0.4 K/CMM K/CMM] (12/24/17 8:26 AM) (12/18/17 4:25 PM) Eosinophils # 0.1 K/CMM 0.1 K/CMM [0.0-0.5 K/CMM] (12/24/17 8:26 AM) (12/18/17 4:25 PM) PT [12.0-14.7 17.0 seconds 16.4 seconds seconds] *HI* *HI* (12/24/17 8:26 AM) (12/18/17 4:25 PM) INR [0.85-1.17] 1.38 1.31 *HI* *HI* (12/24/17 8:26 AM) (12/18/17 4:25 PM) PTT [22.9-35.8 33.7 seconds 38.5 seconds seconds] (12/24/17 8:26 AM) *HI* (12/18/17 4:25 PM) Immunizations No data available for this section Procedures Procedure Date Related Diagnosis Body Site Status NJX INTERLAMINAR LMBR/SA 12/24/17 Completed Biopsy of liver Completed section Completed Cholecystectomy Completed Colonoscopy Completed Excision of cyst Completed Lumpectomy of breast Completed Social History Social History Type Response Smoking Status Never smoker; Exposure to Tobacco Smoke None; Cigarette Smoking Last 365 Days No; Reg Smoking Cessation Counseling No entered on: 12/24/17 Assessment and Plan No data available for this section
--- OUTSIDE RECORDS SUMMARY | 2018-09-03 06:32 | XMS REPORT | Summary of Care ---
Author Author [facility] Organization [facility] Address Unknown Phone Unavailable Encounter HQ Nehemiasr_zac(FIN) [id number] Date(s): 12/16/17 - 12/17/17 [facility] [address], [address] [place] [phone] Vital Signs No data available for this [...]
--- OUTSIDE RECORDS SUMMARY | 2018-09-03 06:32 | XMS REPORT | Summary of Care ---
Author Author [facility] [place] Organization [facility] [place] Address Unknown Phone Unavailable Encounter HQ Rachelle(FIN) [id number] Date(s): 10/20/17 - 10/20/17 [facility] [place] [address] [place], [place] [address] [phone] Encounter Diagnosis Spondylosis without myelopathy or radiculopathy, lumbar region (Final) - 10/24/17 Low back pain (Final) - Spinal stenosis, lumbar region without neurogenic claudication (Final) - Other specific arthropathies, not elsewhere classified, other specified site (Final) - Spondylolisthesis, lumbosacral region (Final) - Localized edema (Final) - Discharge Disposition: Home or Self Care Attending Physician: Damon Abdi MD Vital Signs No data available for [...]
--- OUTSIDE RECORDS SUMMARY | 2018-09-03 06:32 | XMS REPORT | Summary of Care ---
Author Author [facility] [place] Organization [facility] [place] Address Unknown Phone Unavailable Encounter HQ Encntr_alias(FIN) [id number] Date(s): 07/24/17 - 07/24/17 [facility] [place] [address] [place] [phone]- [phone] Discharge Disposition: Home or Self Care Attending [...]
--- OUTSIDE RECORDS SUMMARY | 2018-09-03 06:32 | XMS REPORT | Summary of Care ---
Author Author [facility] Neurosurgery [facility] Organization [facility] Neurosurgery [facility] Address Unknown Phone Unavailable Encounter BERHANE Bush(R[place]ELT) [id number] Date(s): 10/09/17 - 10/09/17 [facility] Neurosurgery [facility] [address] [address], [address] [place], [place] [address] [phone] Discharge Disposition: Home or Self Care Attending Physician: Damon Abdi MD Referring Physician: Joya Thorne DO Vital Signs Most recent to 1 oldest [Reference Range]: Height 157.48 cm (10/09/17 10:05 AM) Weight 76.165 kg (10/09/17 10:05 AM) Body Mass Index 30.71 m2 (10/09/17 10:05 AM) Problem List Condition Effective Dates Status Health Status Informant Diabetes(Confirmed) Active Acid reflux Active disease(Confirmed) Hypertension(Confirm Active ed) Radiculopathy(Confir Active med)1 Simple Active obesity(Confirmed) 1L3-4 Allergies, Adverse Reactions, Alerts Substance Reaction Severity Status NKDA Active Medications hydroxychloroquine 200 mg, PO, Daily, 0 Refill(s) Start Date: 10/09/17 Stop Date: 12/18/17 Status: Completed losartan 25 mg, PO, Daily, 0 Refill(s) Start Date: 10/09/17 Status: Ordered metFORMIN 500 mg, PO, Daily, 0 Refill(s) Start Date: 10/09/17 Status: Ordered omeprazole 40 mg, PO, Daily, 0 Refill(s) Start Date: 10/09/17 Status: Ordered Results No data available for [...]
--- OUTSIDE RECORDS SUMMARY | 2018-09-03 06:32 | XMS REPORT | Summary of Care ---
Author Author [facility] Address Unknown Phone Unavailable Encounter HQ Tj_zac(FIN) [id number] Date(s): 11/02/17 - 11/02/17 [facility] Attending Physician: Joya Thorne DO Vital Signs No [...]
--- OUTSIDE RECORDS SUMMARY | 2018-09-03 06:32 | XMS REPORT | Continuity of Care Document ---
Author Author David dennisonann [facility] [place] Interface Address Unknown Phone Unavailable Problems Problem Status Onset Date Classification Date Reported Comments Source LUMBAR PAIN Active 04/30/2018 [facility] UNK Active 12/17/2017 [facility] LBP, SYSTEMIC LUPUS, FATTY LIVER Active 10/29/2017 [facility] [place],[facility] [place] Spondylosis without myelopathy or radiculopathy, lumbar region 10/25/2017 01/26/2018 [facility] [place] K74.60 - UNSPECIFIED CIRRHOSIS OF LIVER Active 09/29/2016 [facility] [place] Simple obesity Active Problem 02/23/2018 [facility], [facility] [place],[facility] [place],[facility] [place],[facility] Diabetes Active Problem 02/23/2018 [facility] [place] Acid reflux disease Active Problem 02/23/2018 [facility] [place] Hypertension Active Problem 02/23/2018 [facility] [place],[facility] Radiculopathy<sup>1</sup> Active Problem 02/23/2018 L3-4 [facility] [place],[facility] Low back pain 01/26/2018 [facility] [place] Spinal stenosis, lumbar region without neurogenic claudication 01/26/2018 [facility] [place] Other specific arthropathies, not elsewhere classified, other specified site 01/26/2018 [facility] [place] Spondylolisthesis, lumbosacral region 01/26/2018 [facility] [place] Localized edema 01/26/2018 [facility] [place] Diabetes Active Problem 02/08/2018 [facility] [place],[facility] [place] Acid reflux disease Active Problem 02/08/2018 [facility] [place],[facility] [place] Hypertension Active Problem 02/08/2018 [facility] [place],[facility] [place] Radiculopathy<sup>1</sup> Active Problem 02/08/2018 L3-4 [facility] [place],[facility] [place] Diabetes Active Problem 02/08/2018 CHRISTA Reynoso,[facility] Acid reflux disease Active Problem 02/08/2018 CHRISTA Reynoso,[facility] Hypertension Active Problem 02/08/2018 CHRISTA Reynoso,[facility] Radiculopathy<sup>1</sup> Active Problem 02/08/2018 L3-4 CHRISTA Reynoso,[facility] LOW BACK PAIN Active [facility] Medications Medication Details Route Status Patient Instructions Ordering Provider Order Date Source Calcium Chloride 0.0014 MEQ/ML / Potassium Chloride 0.004 MEQ/ML / Sodium Chloride 0.103 MEQ/ML / Sodium Lactate 0.028 MEQ/ML Injectable Solution 1,000 mL, Rate: 25 ml/hr, Infuse over: 40 hr, Route: IV, Dosing Weight 79.205 kg, Total Volume: 1,000, Start date: 12/24/17 13:26:00 CDT, Duration: 30 day, Stop date: 01/23/18 13:25:00 CDT, 1.88, m2 Inactive 12/24/2017 [facility] Acetaminophen 1,000 mg, Route: PO, Drug form: TAB, ONCE, Dosing Weight 79.205, kg, PRN Pain Score 1-3, Start date: 12/24/17 13:26:00 CDT Inactive 12/24/2017 [facility] Labetalol 5 mg, Route: IVP, Q5Min, Dosing Weight 79.205, kg, PRN Elevated BP, Start date: 12/24/17 13:26:00 CDT, Duration: 5 doses or times, Stop date: Limited # of times Inactive 12/24/2017 [facility] Fentanyl 25 microgram, Route: IVP, Q5Min, Dosing Weight 79.205, kg, PRN, Priority: Routine, Start date: 12/24/17 13:26:00 CDT, Duration: 4 doses or times, Stop date: Limited # of times, Pain Score 4-10 Inactive 12/24/2017 [facility] Hydromorphone 0.5 mg, Route: IVP, Q5Min, Dosing Weight 79.205, kg, PRN Pain Score 7-10, Start date: 12/24/17 13:26:00 CDT, Duration: 4 doses or times, Stop date: Limited # of times Inactive 12/24/2017 [facility] Naloxone 0.4 mg, Route: IVP, Q2MIN, Dosing Weight 79.205, kg, PRN Narcotic Reversal, Start date: 12/24/17 13:26:00 CDT, Duration: 8 doses or times, Stop date: Limited # of times Inactive 12/24/2017 [facility] Flumazenil 0.2 mg, Route: IVP, PRN, Dosing Weight 79.205, kg, PRN Benzodiazepine Reversal, Initial dose, Start date: 12/24/17 13:26:00 CDT, Duration: 30 day, Stop date: 01/23/18 13:25:00 CDT Inactive 12/24/2017 [facility] Diphenhydramine 12.5 mg, Route: IVP, Drug form: INJ, Q6H, Dosing Weight 79.205, kg, PRN Itching, Start date: 12/24/17 13:26:00 CDT, Duration: 30 day, Stop date: 01/23/18 13:25:00 CDT Inactive 12/24/2017 [facility] Albuterol 0.83 MG/ML Inhalant Solution 2.49 mg, Route: NEB, Q20Min, Dosing Weight 79.205, kg, PRN Wheezing, Priority: STAT, Start date: 12/24/17 13:26:00 CDT, Duration: 30 day, Stop date: 01/23/18 13:25:00 CDT Inactive 12/24/2017 [facility] Dexamethasone 4 mg, Route: IVP, ONCE, Dosing Weight 79.205, kg, PRN Nausea & Vomiting, Start date: 12/24/17 13:26:00 CDT Inactive 12/24/2017 [facility] Promethazine 6.25 mg, Route: IVPB, ONCE, Dosing Weight 79.205, kg, PRN Nausea & Vomiting, Start date: 12/24/17 13:26:00 CDT Inactive 12/24/2017 [facility] Ondansetron 4 mg, Route: IVP, ONCE, Dosing Weight 79.205, kg, PRN Nausea & Vomiting, Start date: 12/24/17 13:26:00 CDT Inactive 12/24/2017 [facility] Hydralazine 5 mg, Route: IVP, Q20Min, Dosing Weight 79.205, kg, PRN Elevated BP, Start date: 12/24/17 13:26:00 CDT, Duration: 2 doses or times, Stop date: Limited # of times Inactive 12/24/2017 [facility] Calcium 600+D oral tablet 1 tab, PO, Daily, 0 Refill(s) Active 12/18/2017 [facility] Lactulose 667 MG/ML Oral Solution 10 gm=15 mL, PO, BID, PRN constipation, # 240 mL, 0 Refill(s) Active 12/18/2017 [facility] Metoprolol Succinate ER 25 mg oral tablet, extended release 25 mg=1 tab, PO, Daily, # 30 tab, 0 Refill(s) Active 12/18/2017 [facility] azaTHIOprine 50 mg oral tablet 50 mg=1 tab, PO, Daily, # 30 tab, 0 Refill(s) Active 12/18/2017 [facility] Hydroxychloroquine Sulfate 200 MG Oral Tablet 400 mg=2 tab, PO, Daily, # 60 tab, 0 Refill(s) Active 12/18/2017 [facility] gabapentin 300 MG Oral Capsule See Instructions, PO, Take one cap PO at Bedtime x 3 nights, then 1 cap PO BID x 3 days, then 1 cap PO TID thereafter, # 90 cap, 0 Refill(s), Pharmacy: [id number] Active 12/08/2017 [facility] Hydroxychloroquine 200 mg, PO, Daily, 0 Refill(s) No Longer Active 10/09/2017 [facility] Omeprazole 40 mg, PO, Daily, 0 Refill(s) Active 10/09/2017 [facility] Losartan 25 mg, PO, Daily, 0 Refill(s) Active 10/09/2017 [facility] Metformin 500 mg, PO, Daily, 0 Refill(s) Active 10/09/2017 [facility] Allergies, Adverse Reactions, Alerts Substance Category Reaction Severity Reaction type Status Date Reported Comments Source Immunizations Immunization Date Given Site Status Last Updated Comments Source Results Order Name Results Value Reference Range Date Interpretation Comments Source HEMATOLOGY PTT 33.7 s 22.9 - 35.8 12/24/2017 [facility] HEMATOLOGY PT 17.0 s 12.0 - 14.7 12/24/2017 [facility] HEMATOLOGY INR 1.38 0.85 - 1.17 12/24/2017 [facility] HEMATOLOGY MPV 8.9 fL 7.4 - 10.4 12/24/[address] [facility] Hct 36.0 % 36.0 - 48.0 12/24/[address] [facility] Hgb 12.5 g/dL 12.0 - 16.0 12/24/[address] [facility] RBC 3.65 M/CMM 4.20 - 5.40 12/24/[address] [facility] WBC 3.3 K/CMM 3.7 - 10.4 12/24/[address] [facility] MCHC 34.8 g/dL 32.0 - 36.0 12/24/[address] [facility] RDW 14.5 % 11.5 - 14.5 12/24/[address] [facility] MCV 98.7 fL 80.0 - 98.0 12/24/[address] [facility] MCH 34.3 pg 27.0 - 31.0 12/24/[address] [facility] Platelet 79 K/CMM 133 - 450 12/24/[address] [facility] Monocytes 14.2 % 2.0 - 12.0 12/24/[address] [facility] Eosinophils 2.3 % 0.0 - 4.0 12/24/[address] [facility] Basophils 0.4 % 0.0 - 1.0 12/24/[address] [facility] Segs 54.8 % 45.0 - 75.0 12/24/[address] [facility] Monocytes # 0.5 K/CMM 0.0 - 0.8 12/24/[address] [facility] Lymphocytes 28.3 % 20.0 - 40.0 12/24/[address] [facility] Eosinophils # 0.1 K/CMM 0.0 - 0.5 12/24/[address] [facility] Lymphocytes # 0.9 K/CMM 1.0 - 5.5 12/24/[address] [facility] Segs-Bands # 1.8 K/CMM 1.5 - 8.1 12/24/2017 [facility] Chest 2 views DX Chest 2 views DX EXAM: XR CHEST 2 VIEWS DATE: 12/21/2017 12:59 PM CDT INDICATION: - G89.29 Other chronic pain; pre-operative clearance COMPARISON: None TECHNIQUE: PA and lateral chest radiographs FINDINGS: There are tiny nodular perihilar markings. There is no pleural effusion. The cardiomediastinal silhouette is normal. There is no acute bony abnormality. IMPRESSION: Tiny nodular perihilar markings may be vascular, but nonemergent evaluation with contrast-enhanced chest CT is recommended. 12/21/2017 - - Read by: Nancy Abebe Date/time: 12/21/17 14:30 Electronically Signed by: Nancy Abebe 12/21/17 14:33 FINAL REPORT CHRISTA Reynoso ELECTROLYTES AGAP 8.9 meq/L 10.0 - 20.0 12/18/2017 [facility] ELECTROLYTES eGFR 94 mL/min/1.73m2 12/18/2017 Result Comment: The eGFR is calculated using the [...] from the National Kidney Disease Education Program (NKDEP) which additionally recommends that when the eGFR is used in patients with extremes of body mass index for purposes of drug dosing, the eGFR should be multiplied by the estimated BMI. [facility] ELECTROLYTES Chloride Lvl 105 meq/L 95 - 109 12/18/2017 [facility] ELECTROLYTES Sodium Lvl 139 meq/L 135 - 145 12/18/2017 [facility] ELECTROLYTES Potassium Lvl 3.9 meq/L 3.5 - 5.1 12/18/2017 [facility] ELECTROLYTES Creatinine Lvl 0.63 mg/dL 0.50 - 1.40 12/18/2017 [facility] ELECTROLYTES Calcium Lvl 8.6 mg/dL 8.5 - 10.5 12/18/2017 [facility] ELECTROLYTES CO2 29 meq/L 24 - 32 12/18/2017 [facility] ELECTROLYTES BUN 16 mg/dL 7 - 22 12/18/2017 [facility] ELECTROLYTES Glucose Lvl 188 mg/dL 70 - 99 12/18/2017 [facility] HEMATOLOGY PTT 38.5 s 22.9 - 35.8 12/18/2017 [facility] HEMATOLOGY PT 16.4 s 12.0 - 14.7 12/18/2017 [facility] HEMATOLOGY INR 1.31 0.85 - 1.17 12/18/2017 [facility] HEMATOLOGY Eosinophils # 0.1 K/CMM 0.0 - 0.5 12/18/2017 [facility] Monocytes # 0.4 K/CMM 0.0 - 0.8 12/18/[address] [facility] Lymphocytes # 0.8 K/CMM 1.0 - 5.5 12/18/[address] [facility] Eosinophils 2.8 % 0.0 - 4.0 12/18/[address] [facility] Segs-Bands # 1.5 K/CMM 1.5 - 8.1 12/18/[address] [facility] Basophils 0.4 % 0.0 - 1.0 12/18/[address] [facility] Monocytes 15.2 % 2.0 - 12.0 12/18/[address] [facility] Lymphocytes 28.0 % 20.0 - 40.0 12/18/[address] [facility] Segs 53.6 % 45.0 - 75.0 12/18/[address] [facility] MPV 8.7 fL 7.4 - 10.4 12/18/[address] [facility] Platelet 79 K/CMM 133 - 450 12/18/[address] [facility] RDW 14.1 % 11.5 - 14.5 12/18/[address] [facility] MCHC 34.3 g/dL 32.0 - 36.0 12/18/[address] [facility] MCH 33.6 pg 27.0 - 31.0 12/18/[address] [facility] WBC 2.9 K/CMM 3.7 - 10.4 12/18/[address] [facility] RBC 3.73 M/CMM 4.20 - 5.40 12/18/[address] [facility] MCV 97.9 fL 80.0 - 98.0 12/18/[address] [facility] Hgb 12.5 g/dL 12.0 - 16.0 12/18/[address] [facility] Hct 36.6 % 36.0 - 48.0 12/18/2017 [facility] Spine lumbar wo contrast MRI Spine lumbar wo contrast MRI EXAM: MRI LUMBAR SPINE WITHOUT CONTRAST DATE: 10/20/2017 4:19 PM CDT . ORDERING PHYSICIAN: Lily Lezama NP CLINICAL INDICATION: M54.5 Low back pain - M54.5 Low back pain; TECHNIQUE: Multiplanar, multisequence MRI lumbar spine without IV contrast COMPARISON: Unavailable FINDINGS: For the purposes of enumeration, the lowest well formed intervertebral disc was counted as L5-S1 on this exam. INTRASPINAL CONTENTS/CONUS: The conus terminates at L1-L2. No definite dural based lesion. VERTEBRAE: The vertebrae are normal in height and alignment. There is edema in the left greater than right L5 and S1 pedicles and facets. PARASPINAL SOFT TISSUES: No edema or definite masses. No aortic aneurysm. DISC SPACES, SPINAL CANAL, AND NEURAL FORAMINA: T12-L1. Intervertebral disc height and signal are maintained. Posterior elements are normal. There is no stenosis. L1-L2. Intervertebral disc height and signal are maintained. Posterior elements are normal. There is no stenosis. L2-L3. Intervertebral disc height and signal are maintained. Posterior elements are normal. There is no stenosis. L3-L4. Dehydrated disc with shallow diffuse bulge asymmetric to the left foramen and extra foraminal zone. Facets are unremarkable. Since canal measures 11 mm. Lateral recesses are patent. Neural foramina are patent. L4-L5. Short pedicles at this level. Desiccated disc with shallow 1 to 2 mm diffuse disc bulge and ventral annular fissuring. There is facet hypertrophy ligamentous redundancy. Central canal measures 5 mm with crowded cauda equina. There is bilateral lateral recess narrowing. Disc and facets mildly narrow the neural foramina, but does not contact the exiting L4 nerve roots. L5-S1. There is left greater than right facet hypertrophy. There is 3 mm anterolisthesis of L5 relative S1. The disc is dehydrated with annular pseudobulge and fissuring. Central canal measures 5 mm with crowded cauda equina. Lateral recesses are effaced with nonvisualization of descending S1 nerve roots. There is severe narrowing of left neural foramen, and the L5 pedicle, enlarged facets, and annular pseudobulge all deformed exiting nerve root. IMPRESSION: 1. L4-L5 spinal stenosis and cauda equina crowding. There is mild narrowing of the neural foramina. 2. L5-S1 facet arthropathy, spondylolisthesis, spinal stenosis with cauda equina crowding, and severe left neural foramen narrowing 3. Left greater than right stress edema in the L5 and S1 pedicle 10/20/2017 - - Read by: Alexys Valladares MD Dictated Date/time: 10/20/17 17:11 Electronically Signed by: Alexys Valladares MD 10/21/17 09:27 FINAL REPORT HAYLEY Reynoso Breast Mammo Scrn JOSEPH incl CAD MA Breast Mammo Scrn JOSEPH incl CAD MA BILATERAL DIGITAL SCREENING MAMMOGRAM WITH CAD: 07/24/2017 CLINICAL: Encounter For Screening Mammogram For Malignant Neoplasm Of Breast/Z12.31. Current study was evaluated with a Computer Aided Detection (CAD) system. COMPARISON:No prior exams were available for comparison. TECHNIQUE: Mammographic views were obtained using digital acquisition. Current study was also evaluated with a Computer Aided Detection (CAD) system. FINDINGS: The tissue of both breasts is extremely dense. This may lower the sensitivity of mammography. There are benign appearing calcifications in both breasts. No significant masses, calcifications, or other findings are seen in either breast. IMPRESSION: BENIGN RECOMMENDATION:There is no mammographic evidence of malignancy. A 1 year screening mammogram is recommended.(07/25/2018) This exam was interpreted at [id number] for NIC Dowd 15. Professional services are provided by the [facility] Division of Diagnostic Imaging. Vinay Gallardo M.D. cm/penrad:07/31/2017 10:26:25 Continuing Education Specialist(s): RT Dorene(R)(M), [facility] letter sent: BI-RADS 1/2 Dense Mammogram BI-RADS: 2 Benign 07/24/2017 - - Read by: Julien Concepcion MD Dictated Date/time: 07/31/17 10:26 Electronically Signed by: Julien Concepcion MD 07/31/17 10:26 FINAL REPORT ERINJoselin Edgardo Bone Density [employer] MA Bone Density [employer] MA BONE DENSITY ASSESSMENT: 07/24/2017 CLINICAL DATA: Post menopausal. Encounter For Screening For Osteoporosis/Z13.820 FINDINGS: Bone density evaluation was performed 07/24/2017 on the right femur neck using a Hologic unit. The BMD average for the exam is 0.644 g/cm2. The T-score is -1.80 and the Z-score is -0.50. This matches the World Health Organization's criteria for osteopenia and places the patient at a medium risk for fracture. An additional bone density evaluation was performed 07/24/2017 on the left femur neck using a Hologic unit. The BMD average for the exam is 0.608 g/cm2. The T- score is -2.20 and the Z-score is -0.80. This matches the World Health Organization's criteria for osteopenia and places the patient at a medium risk for fracture. An additional bone density evaluation was performed 07/24/2017 on the right hip using a Hologic unit. The BMD average for the exam is 0.808 g/cm2. The T-score is -1.10. This matches the World Health Organization's criteria for osteopenia and places the patient at a medium risk for fracture. An additional bone density evaluation was performed 07/24/2017 on the left hip using a Hologic unit. The BMD average for the exam is 0.769 g/cm2. The T-score is -1.40 and the Z-score is -0.30. This matches the World Health Organization's criteria for osteopenia and places the patient at a medium risk for fracture. An additional bone density evaluation was performed 07/24/2017 on the AP L1-L3 region of spine using a Hologic unit. The BMD average for the exam is 0.608 g/cm2. The T-score is -2.20 and the Z-score is -0.80. This matches the World Health Organization's criteria for osteopenia and places the patient at a medium risk for fracture. FRAX 10 year probability of major osteoporotic fracture is 5.5% and hip fracture is 0.8%. IMPRESSION: OSTEOPENIA Patient is at medium risk for fracture. This exam was interpreted at [id number] for NIC Gomez 15. Vinay Gallardo M.D., cm/darin:07/24/2017 11:58:01 Continuing Education Specialist(s): Tatyana STEELE(Ashley)(Jeanne), [facility] 07/24/2017 - - Read by: Julien Concepcion MD Dictated Date/time: 07/24/17 11:58 Electronically Signed by: Julien Concepcion MD 07/24/17 11:58 [facility] US Liver US Exam: Liver ultrasound Reason for Exam: K74.60 Unspecified cirrhosis of liver Comparison Exam: None Discussion: Multiple axial and sagittal images were obtained of the liver. The liver is of normal echogenicity and size, measuring 15.3 cm. in length. Contour of the liver is slightly nodular, suggestive of early cirrhotic changes. No focal hepatic masses. The main portal vein is hepatopetal in flow measuring approximately 0.9 cm in diameter. The visualized portions of the hepatic veins and hepatic arteries are unremarkable. No intrahepatic or extrahepatic biliary duct dilation, with the common bile duct measuring 0.2 cm. Patient is status post cholecystectomy. Pancreas is not adequately seen secondary to overlying bowel gas. No evidence seen for ascites. Impression: 1. Contour of the liver is slightly nodular, suggestive of early cirrhotic changes. 10/01/2016 - - Read by: Fish Boyer MD Dictated Date/time: 10/01/16 10:32 Electronically Signed by: Fish Boyer MD 10/01/16 10:36 FINAL REPORT [facility] [place] Vital Signs Vital Sign Value Date Comments Source Respitory Rate 20 12/24/2017 [facility] Systolic (mm Hg) 145 12/24/2017 [facility] Diastolic (mm Hg) 71 12/24/2017 [facility] Respitory Rate 17 12/24/2017 [facility] Systolic (mm Hg) 140 12/24/2017 [facility] Diastolic (mm Hg) 78 12/24/2017 [facility] Respitory Rate 18 12/24/2017 [facility] Systolic (mm Hg) 143 12/24/2017 [facility] Diastolic (mm Hg) 82 12/24/2017 [facility] Heart Rate 72 12/18/2017 [facility] Temperature Oral (F) 98.0 F 12/18/2017 [facility] Height 154.94 cm 12/18/2017 [facility] BMI Calculated 32.99 12/18/2017 [facility] Weight 79.205 12/18/2017 [facility] Weight 75 11/17/2017 [facility] Height 154.94 cm 11/17/2017 [facility] BMI Calculated 31.24 11/17/2017 [facility] Heart Rate 79 11/17/2017 [facility] Systolic (mm Hg) 156 11/17/2017 [facility] Diastolic (mm Hg) 85 11/17/2017 [facility] BMI Calculated 30.71 10/09/2017 [facility] Weight 76.165 10/09/2017 [facility] Height 157.48 cm 10/09/2017 [facility] Encounters Location Location Details Encounter Type Encounter Number Reason For Visit Attending Provider ADM Date DC Date Status Source [facility] Outpatient Imaging - [facility] [id number] Jordan Daileymercedes 10/01/2016 10/02/2016 [facility] [place] [facility] - [place] [facility] [id number] [place] Joe 07/24/2017 07/25/2017 [facility] [place] Out[facility] [id number] LILY EV [facility]/09/2017 [facility] [id number] Joya Thorne 10/09/2017 10/10/2017 [facility] - [place] [facility] [id number] Damon Cathy 10/20/2017 10/21/2017 [facility] [place] [facility] [place] [facility] [id number] Joya Thorne 11/02/2017 11/02/2017 [facility] [place] [facility] [place] [facility] [id number] Joya Thorne 11/02/2017 11/02/2017 [facility] [place] [facility] [place] Phone Message [id number] 11/03/2017 11/05/2017 [facility] [place] Phone Message [id number] 11/03/2017 11/05/2017 [facility] [id number] DAMON CATHY 11/17/2017 Active [facility] [id number] Joya Thorne 11/17/2017 11/18/2017 [facility] [id number] YIN VENEGAS 12/07/2017 [facility] [id number] Joya Thorne 12/07/2017 12/08/2017 [facility] Phone Message [id number] 12/08/2017 12/10/2017 [facility] Phone Message [id number] 12/08/2017 12/10/2017 [facility] Phone Message [id number] 12/16/2017 12/18/2017 [facility] Outpatient Imaging - [place] [facility] [id number] [place] 12/21/2017 12/22/2017 [facility] [place] Outpatient [id number] YIN VENEGAS 12/24/2017 Active [facility] Day Surgery [id number] Yin Venegas 12/24/2017 12/24/2017 [facility] Phone Message [phone] 02/05/2018 02/07/2018 [facility] [id number] YIN VENEGAS 02/22/2018 Active [facility] Outpatient [id number] DAMON CASTLEH 03/16/2018 Active [facility] Outpatient [id number] [facility] 06/04/2018 Active [facility] Outpatient [id number] TERRELL FAYE 06/18/2018 Active [facility] Outpatient [id number] ALENA BUYS 07/23/2018 Active [facility] Outpatient [id number] TERRELL FAYE 09/09/2018 Active [facility] Procedures Procedure Code Date Perfomer Comments Source NJX INTERLAMINAR LMBR/SA 12/24/2017 [facility] [id number] [facility] Biopsy of liver [id number] [facility] [place] section [id number] [facility] [place] Cholecystectomy [id number] [facility] [place] Colonoscopy [id number] [facility] [place] Excision of cyst [id number] [facility] [place] Lumpectomy of breast [id number] [facility] [place] Biopsy of liver 89502852 [facility] section 35212809 [facility] Colonoscopy [id number] [facility] Excision of cyst 326341589 [facility] Lumpectomy of breast 716354059 [facility] Biopsy of liver [id number] [facility] [place] section [id number] [facility] [place] Cholecystectomy [id number] [facility] [place] Colonoscopy [id number] [facility] [place] Excision of cyst [id number] [facility] [place] Lumpectomy of breast [id number] [facility] [place] Biopsy of liver [id number] [facility] [place] section [id number] [facility] [place] Cholecystectomy [id number] [facility] [place] Colonoscopy [id number] [facility] [place] Excision of cyst [id number] [facility] [place] Lumpectomy [facility] breast [id number] [facility] [place] Biopsy of liver 35209005 [facility] section [id number] [facility] Cholecystectomy [id number] [facility] Colonoscopy [id number] [facility] Excision of cyst [id number] [facility] Lumpectomy of breast [id number] [facility]
--- OUTSIDE RECORDS SUMMARY | 2018-09-03 06:32 | XMS REPORT | Summary of Care ---
Author Author [facility] Neuro[facility] Organization [facility] Address Unknown Phone Unavailable Encounter HQ Encntr_alias(FIN) [phone] Date(s): 12/08/17 - 12/09/17 [facility] Neuro[facility] [address] [facility], [address] [place], [place] [address] [phone] Vital Signs No data available for this [...]
--- OUTSIDE RECORDS SUMMARY | 2018-09-03 06:32 | XMS REPORT | Summary of Care ---
Author Author [facility] Neurosurgery [facility] Organization [facility] Neuro[facility] Address Unknown Phone Unavailable Encounter HQ Encntr_alias(FIN) [id number] Date(s): 12/08/17 - 12/09/17 [facility] Neurosurgery [facility] [address] [address], [address] [place], [place] [address] [phone] Vital Signs No data available for this [...]
--- OUTSIDE RECORDS SUMMARY | 2018-09-03 06:32 | XMS REPORT | Summary of Care ---
Author Author [facility] Organization [facility] Address Unknown Phone Unavailable Encounter HQ Yakovntr_zac(FIN) [id number] Date(s): 11/17/17 - 11/17/17 [facility] [address] [address], [address] [place], [place] [address] [phone] Discharge Disposition: Home or Self Care Attending Physician: Damon Abdi MD Referring Physician: Joya Throne DO Vital Signs Most recent to 1 oldest [Reference Range]: Height 154.94 cm (11/17/17 12:10 PM) Blood Pressure 156/85 mmHg [90-140/60-90 mmHg] *HI* (11/17/17 12:10 PM) Peripheral Pulse 79 bpm Rate [60-100 bpm] (11/17/17 12:10 PM) Weight 75 kg (11/17/17 12:10 PM) Body Mass Index 31.24 m2 (11/17/17 12:10 PM) Problem List Condition Effective Dates Status Health [...]
--- OUTSIDE RECORDS SUMMARY | 2018-09-03 06:33 | XMS REPORT | Summary of Care ---
Author Author [facility] Neurosurgery [facility] Organization [facility] Neurosurgery [facility] Address Unknown Phone Unavailable Encounter HQ Rachelle(FIN) [phone] Date(s): 11/17/17 - 11/17/17 [facility] Neurosurgery [facility] [address] [address] [facility], [address] [place], [place] [address] [phone] Discharge Disposition: Home or Self Care Attending [...] Reg Smoking Cessation Counseling No entered on: 02/22/18 Assessment and Plan No data available for this section
--- OUTSIDE RECORDS SUMMARY | 2018-09-03 06:33 | XMS REPORT ---
Author Author [facility] Address Unknown Phone Unavailable Care Team Providers Care Java Swing Developer Name Role Phone Arianna STARKEYNora COLT Unavailable Unavailable Problems This patient has no known problems. Allergies, Adverse Reactions, Alerts This patient has no known allergies or adverse reactions. Medications This patient has no known medications. Results Test Description Test Time Test Comments Text Results Atomic Results Result Comments HEPATITIS B SURFACE ANTIBODY 2018-05-24 20:28:00 HEPATITIS B SURFACE ANTIBODY (BEAKER) (test lxnb=976) < mIU/mL <8.0 [id number] 20:26:00* Test Item Value Reference Range Comments THYROID STIMULATING HORMONE (BEAKER) (test mbdd=512) 1.32 uIU/mL 0.35-4.94 IMMUNOGLOBULIN G (IGG)2018-05-24 20:00:00* Test Item Value Reference Range Comments IMMUNOGLOBULIN G (IGG) (BEAKER) (test hihv=290) 2199 mg/dL 540-1822 MR, ABDOMEN, [id number] 15:20:00Referring: Dr. Jordan Nguyen REPORT MRI of the abdomen dated May 17, 2018 COMPARISON: November 09, 2017 Comment: Multiplanar T1 and T2-weighted images of the abdomen, postcontrast axial and coronal T1-weighted images of the abdomen were obtained. Liver is cirrhotic in appearance with the ureter margins. No abnormal enha ncement or suspicious mass is seen in the liver. Spleen is in upper limits of no rmal in size. The splenic, superior mesenteric, portal, and hepatic veins are pa tent. Main portal vein measures approximately 10 mm in diameter. Paraesophageal varices is present. Pancreas is normal in caliber. A 4 mm cyst is seen in the ta il of the pancreas. No pancreatic duct dilatation or enhancing pancreatic mass i s noted. Both adrenals unremarkable. Kidneys are normal in size and functioning. No mass, adenopathy, ascites is seen in the abdomen. The visualized small and l arge bowel are unremarkable. IMPRESSION:1. Cirrhosis with splenomegaly and zackary l hypertension.2. No suspicious hepatic mass.3. Small nonspecific cyst in the ta il of the pancreas. Signed: Albert Watson Verified Date/Time: 05/17/2018 15:20:04 Reading Location: [address] Radiology Reading Room Electronic ally signed by: ALBERT WATSON M.D. on 05/17/2018 03:20 PM PROTHROMBIN TIME/INR 2017-11-19 16:32:00* Test Item Value Reference Range Comments PROTIME (BEAKER) (test ujjf=511) 16.5 seconds 11.7-14.7 INR (BEAKER) (test qeoh=405) 1.3 <=5.9 RECOMMENDED COUMADIN/WARFARIN INR THERAPY RANGESSTANDARD DOSE: 2.0 - 3.0 Inclu lea: PROPHYLAXIS for venous thrombosis, systemic embolization; TREATMENT for pedrito ous thrombosis and/or pulmonary embolus.HIGH RISK: Target INR is 2.5-3.5 for pat ients with mechanical heart valves.ALPHA FETOPROTEIN (AFP), TUMOR MARKER 2017-11-09 15:37:00* Test Item Value Reference Range Comments ALPHA-FETOPROTEIN (BEAKER) (test nyhp=0804) 6.4 ng/mL <10.0 HEPATIC FUNCTION [id number] 15:20:00* Test Item Value Reference Range Comments TOTAL PROTEIN (BEAKER) (test vkza=808) 8.2 gm/dL 6.0-8.3 ALBUMIN (BEAKER) (test rtib=9670) 3.5 g/dL 3.5-5.0 BILIRUBIN TOTAL (BEAKER) (test zzmf=841) 1.3 mg/dL 0.2-1.2 BILIRUBIN DIRECT (BEAKER) (test dfgy=865) 0.5 mg/dL 0.1-0.5 ALKALINE PHOSPHATASE (BEAKER) (test gjun=235) 113 U/L 40-150 AST (SGOT) (BEAKER) (test dmux=904) 50 U/L 5-34 ALT (SGPT) (BEAKER) (test yqjy=178) 37 U/L 6-55 BASIC METABOLIC [id number] 15:20:00* Test Item Value Reference Range Comments SODIUM (BEAKER) (test ress=545) 139 meq/L 136-145 POTASSIUM (BEAKER) (test crks=237) 4.1 meq/L 3.5-5.1 CHLORIDE (BEAKER) (test flfx=468) 106 meq/L 98-107 CO2 (BEAKER) (test bymr=681) 26 meq/L 22-29 BLOOD UREA NITROGEN (BEAKER) (test spys=447) 17 mg/dL 7-21 CREATININE (BEAKER) (test aqgo=302) 0.61 mg/dL 0.57-1.25 GLUCOSE RANDOM (BEAKER) (test datw=464) 91 mg/dL 70-105 CALCIUM (BEAKER) (test rluc=248) 9.3 mg/dL 8.4-10.2 EGFR (BEAKER) (test fizy=8565) 98 mL/min/1.73 sq m ESTIMATED GFR IS NOT ACCURATE CREATININE CLEARANCE IN PREDICTING GLOMERULAR FILTRATION RATE. ESTIMATED GFR IS NOT APPLICABLE FOR DIALYSIS PATIENTS. CBC W/PLT COUNT & AUTO [id number] 14:54:00* Test Item Value Reference Range Comments WHITE BLOOD CELL COUNT (BEAKER) (test rxon=810) 3.5 K/ L 3.5-10.5 RED BLOOD CELL COUNT (BEAKER) (test ayxu=549) 4.02 M/ L 3.93-5.22 HEMOGLOBIN (BEAKER) (test iahz=976) 13.1 GM/DL 11.2-15.7 HEMATOCRIT (BEAKER) (test aegc=294) 39.1 % 34.1-44.9 MEAN CORPUSCULAR VOLUME (BEAKER) (test zmlf=868) 97.3 fL 79.4-94.8 MEAN CORPUSCULAR HEMOGLOBIN (BEAKER) (test afvz=945) 32.6 pg 25.6-32.2 MEAN CORPUSCULAR HEMOGLOBIN CONC (BEAKER) (test yxgj=693) 33.5 GM/DL 32.2-35.5 RED CELL DISTRIBUTION WIDTH (BEAKER) (test ixha=495) 13.2 % 11.7-14.4 PLATELET COUNT (BEAKER) (test heyc=664) 78 K/CU MM 150-450 MEAN PLATELET VOLUME (BEAKER) (test yowu=579) 12.2 fL 9.4-12.3 NUCLEATED RED BLOOD CELLS (BEAKER) (test dolu=751) 0 /100 WBC 0-0 NEUTROPHILS RELATIVE PERCENT (BEAKER) (test pjny=911) 51 % LYMPHOCYTES RELATIVE PERCENT (BEAKER) (test nisv=675) 35 % MONOCYTES RELATIVE PERCENT (BEAKER) (test kxlr=766) 12 % EOSINOPHILS RELATIVE PERCENT (BEAKER) (test gefa=798) 1 % BASOPHILS RELATIVE PERCENT (BEAKER) (test tzsm=274) 1 % NEUTROPHILS ABSOLUTE COUNT (BEAKER) (test gwqu=609) 1.79 K/ L 1.56-6.13 LYMPHOCYTES ABSOLUTE COUNT (BEAKER) (test mluq=046) 1.21 K/ L 1.18-3.74 MONOCYTES ABSOLUTE COUNT (BEAKER) (test kpgg=795) 0.43 K/ L 0.24-0.36 EOSINOPHILS ABSOLUTE COUNT (BEAKER) (test ifgd=909) 0.05 K/ L 0.04-0.36 BASOPHILS ABSOLUTE COUNT (BEAKER) (test qvzn=745) 0.02 K/ L 0.01-0.08 IMMATURE GRANULOCYTES-RELATIVE PERCENT (BEAKER) (test hrgt=9831) 0 % 0-1 MR, ABDOMEN, [id number] 13:28:00Referring: Dr. Jordan MartinezFINLILIA REPORT MRI abdomen without and with contrast. INDICATION: cirrhosis COMPARISON: 12/02/2016 TECHNIQUE: Multiplanar multisequence MRI examination of the abdomen was performed before and after the administration of intravenous gadolinium in a dynamic fashion. FINDINGS: The liver demonstrates cirrhotic morphology. There are punctate foci of arterial enhancement which are too small to characterize without associated washout of contrast on subsequent p hases, likely representing vascular shunting. No suspicious enhancing hepatic ma ss is seen. The spleen is enlarged. The gallbladder is not visualized. There is no biliary dilatation. There is no pancreatic ductal dilatation. Again seen is a subcentimeter cystic lesion in the tail of the pancreas measuring approximately 6 mm possibly representing a small IPMN, without change. The adrenal glands and kidneys are unremarkable. There are subcentimeter nonenhancing lesions in both kidneys, too small to characterize suggestive of cysts. There is no ascites. The re is no bowel obstruction. There is no fluid collection or hematoma. There is n o lymphadenopathy in the abdomen. The osseous structures are intact. The main po rtal vein measures 11 mm. The hepatic veins, SMV, splenic vein, and portal vein are patent. 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 IMPRESSION:1. Hepatic cirrho sis and evidence of portal hypertension. No suspicious enhancing mass.2. Stable subcentimeter pancreatic tail lesion, amenable to continued follow-up matti brown Signed: Romulo Means MDReport Verified Date/Time: 11/09/2017 13:28:53 Reading Location: [place] [id number] Ortho Consult Reading Room -[id number] 11:22:00* Test Item Value Reference Range Comments POC-CREATININE (BEAKER) (test tapq=4614) 0.5 mg/dL 0.6-1.[address] [facility] [address] [facility] [address] POC-EGFR (BEAKER) (test vjdi=7132) 124 mL/min/1.73M2 U/S, ABDOMINAL, [id number] 14:04:00Referring: Dr. Jordan Hemphill for Exam:->Cirrhosis/ screening for cancerFINAL REPORT Abdominal ultrasound dated 05/04/2017 Clinical information:Cirrhosis/ screening for cancer Comment: Real-time transabdominal ultrasound was performed. Liver is normal in size and measures 15.7 cm in length. The echogenicity of the liver is heterogeneous. No focal lesion is noted in the liver. Spleen is normal in size without focal abnormality. Gallbladder is surgically absent. No biliary dilatation is seen. Common bile duct measures 3 mm in diameter. Main portal vein measures 9 mm in diameter. Pancreas is suboptimally evaluated. The previously noted cystic lesion in the tail of the pancreas on the MRI is not seen. Right kidney measures 11.2 x 4.7 x 5.4 cm. Left kidney measures 11.3 x 6.6 x 5.5 cm. Echogenicity of both kidney is normal. No hydronephrosis or solid mass seen in either kidney. No cyst is seen in the either kidney. No ascites is present in the abdomen. Abdominal aorta is normal in caliber. IVC and Hepatic veins are patent. Impression: 1. Heterogeneous appearing liver.2. Incomplete visualization of the pancreas.3. Otherwise unremarkable abdominal ultrasound. Signed: Albert Watson MDReport Verified Date/Time: 05/04/2017 14:04: 40 Reading Location: [address] Radiology Reading Room Electronically si gned by: ALBERT WATSON M.D. on 05/04/2017 02:04 PM ALPHA FETOPROTEIN (AFP), TUMOR [id number] 17:46:00* Test Item Value Reference Range Comments ALPHA-FETOPROTEIN (BEAKER) (test papv=8161) 6.3 ng/mL <10.0 HEPATIC FUNCTION [id number] 17:23:00* Test Item Value Reference Range Comments TOTAL PROTEIN (BEAKER) (test gfwr=408) 7.9 gm/dL 6.0-8.3 ALBUMIN (BEAKER) (test uugx=0950) 3.2 g/dL 3.5-5.0 BILIRUBIN TOTAL (BEAKER) (test oltr=165) 1.2 mg/dL 0.2-1.2 BILIRUBIN DIRECT (BEAKER) (test xzcx=863) 0.4 mg/dL 0.1-0.5 ALKALINE PHOSPHATASE (BEAKER) (test ctqc=817) 137 U/L 40-150 AST (SGOT) (BEAKER) (test zfdz=353) 56 U/L 5-34 ALT (SGPT) (BEAKER) (test jsqb=235) 32 U/L 6-55 BASIC METABOLIC [id number] 17:23:00* Test Item Value Reference Range Comments SODIUM (BEAKER) (test bxas=693) 139 meq/L 136-145 POTASSIUM (BEAKER) (test djck=481) 3.7 meq/L 3.5-5.1 CHLORIDE (BEAKER) (test kryl=295) 108 meq/L 98-107 CO2 (BEAKER) (test bfdt=602) 25 meq/L 22-29 BLOOD UREA NITROGEN (BEAKER) (test cxvp=930) 15 mg/dL 7-21 CREATININE (BEAKER) (test atzz=989) 0.62 mg/dL 0.57-1.25 GLUCOSE RANDOM (BEAKER) (test camo=340) 154 mg/dL 70-105 CALCIUM (BEAKER) (test hrba=412) 8.7 mg/dL 8.4-10.2 EGFR (BEAKER) (test stni=7635) 97 mL/min/1.73 sq m ESTIMATED GFR IS NOT ACCURATE CREATININE CLEARANCE IN PREDICTING GLOMERULAR FILTRATION RATE. ESTIMATED GFR IS NOT APPLICABLE FOR DIALYSIS PATIENTS. PROTHROMBIN TIME/[id number] 17:15:00* Test Item Value Reference Range Comments PROTIME (BEAKER) (test oefz=088) 16.0 seconds 11.7-14.7 INR (BEAKER) (test wigo=156) 1.3 <=5.9 RECOMMENDED COUMADIN/WARFARIN INR THERAPY RANGESSTANDARD DOSE: 2.0 - 3.0 Inclu lea: PROPHYLAXIS for venous thrombosis, systemic embolization; TREATMENT for pedrito ous thrombosis and/or pulmonary embolus.HIGH RISK: Target INR is 2.5-3.5 for pat ients with mechanical heart valves.CBC W/PLT COUNT & AUTO [id number] 17:03:00* Test Item Value Reference Range Comments WHITE BLOOD CELL COUNT (BEAKER) (test prfu=758) 3.3 K/ L 3.5-10.5 RED BLOOD CELL COUNT (BEAKER) (test dngp=619) 3.86 M/ L 3.93-5.22 HEMOGLOBIN (BEAKER) (test fynx=004) 12.9 GM/DL 11.2-15.7 HEMATOCRIT (BEAKER) (test jevb=003) 38.7 % 34.1-44.9 MEAN CORPUSCULAR VOLUME (BEAKER) (test flhc=879) 100.3 fL 79.4-94.8 MEAN CORPUSCULAR HEMOGLOBIN (BEAKER) (test mvze=239) 33.4 pg 25.6-32.2 MEAN CORPUSCULAR HEMOGLOBIN CONC (BEAKER) (test frjw=526) 33.3 GM/DL 32.2-35.5 RED CELL DISTRIBUTION WIDTH (BEAKER) (test arlh=540) 14.3 % 11.7-14.4 PLATELET COUNT (BEAKER) (test vtra=969) 91 K/CU MM 150-450 MEAN PLATELET VOLUME (BEAKER) (test rsai=934) 11.5 fL 9.4-12.3 NUCLEATED RED BLOOD CELLS (BEAKER) (test wkao=910) 0 /100 WBC 0-0 NEUTROPHILS RELATIVE PERCENT (BEAKER) (test ligp=447) 47 % LYMPHOCYTES RELATIVE PERCENT (BEAKER) (test zktd=066) 37 % MONOCYTES RELATIVE PERCENT (BEAKER) (test ogrc=587) 12 % EOSINOPHILS RELATIVE PERCENT (BEAKER) (test nbsr=840) 3 % BASOPHILS RELATIVE PERCENT (BEAKER) (test pdby=582) 1 % NEUTROPHILS ABSOLUTE COUNT (BEAKER) (test dmqi=325) 1.54 K/ L 1.56-6.13 LYMPHOCYTES ABSOLUTE COUNT (BEAKER) (test alao=671) 1.23 K/ L 1.18-3.74 MONOCYTES ABSOLUTE COUNT (BEAKER) (test avlz=980) 0.41 K/ L 0.24-0.36 EOSINOPHILS ABSOLUTE COUNT (BEAKER) (test slly=874) 0.09 K/ L 0.04-0.36 BASOPHILS ABSOLUTE COUNT (BEAKER) (test mawj=817) 0.02 K/ L 0.01-0.08 IMMATURE GRANULOCYTES-RELATIVE PERCENT (BEAKER) (test locd=9983) 0 % 0-1 COMPREHENSIVE METABOLIC [id number] 11:43:00* Test Item Value Reference Range Comments TOTAL PROTEIN (BEAKER) (test foxv=423) 8.1 gm/dL 6.0-8.3 Specimen slightly hemolyzed ALBUMIN (BEAKER) (test cygs=6070) 3.2 g/dL 3.5-5.0 Specimen slightly hemolyzed ALKALINE PHOSPHATASE (BEAKER) (test gaef=138) 138 U/L 40-150 BILIRUBIN TOTAL (BEAKER) (test qian=809) 1.0 mg/dL 0.2-1.2 Specimen slightly hemolyzed SODIUM (BEAKER) (test eban=486) 138 meq/L 136-145 POTASSIUM (BEAKER) (test fcpa=418) 3.9 meq/L 3.5-5.1 Specimen slightly hemolyzed CHLORIDE (BEAKER) (test appg=040) 107 meq/L 98-107 CO2 (BEAKER) (test owgo=416) 23 meq/L 22-29 BLOOD UREA NITROGEN (BEAKER) (test vjbs=304) 18 mg/dL 7-21 CREATININE (BEAKER) (test chjg=194) 0.60 mg/dL 0.57-1.25 Specimen slightly hemolyzed GLUCOSE RANDOM (BEAKER) (test usff=861) 117 mg/dL 70-105 CALCIUM (BEAKER) (test bkpa=751) 8.8 mg/dL 8.4-10.2 AST (SGOT) (BEAKER) (test qoxt=026) 53 U/L 5-34 Specimen slightly hemolyzed ALT (SGPT) (BEAKER) (test xjuz=921) 28 U/L 6-55 Specimen slightly hemolyzed EGFR (BEAKER) (test npwl=5445) 101 mL/min/1.73 sq m ESTIMATED GFR IS NOT ACCURATE CREATININE CLEARANCE IN PREDICTING GLOMERULAR FILTRATION RATE. ESTIMATED GFR IS NOT APPLICABLE FOR DIALYSIS PATIENTS. CBC W/PLT COUNT & AUTO [id number] 11:07:00* Test Item Value Reference Range Comments WHITE BLOOD CELL COUNT (BEAKER) (test erxd=007) 4.0 K/ L 3.5-10.5 RED BLOOD CELL COUNT (BEAKER) (test eabg=529) 3.87 M/ L 3.93-5.22 HEMOGLOBIN (BEAKER) (test iluc=346) 12.9 GM/DL 11.2-15.7 HEMATOCRIT (BEAKER) (test gpsk=929) 38.1 % 34.1-44.9 MEAN CORPUSCULAR VOLUME (BEAKER) (test sdcq=588) 98.4 fL 79.4-94.8 MEAN CORPUSCULAR HEMOGLOBIN (BEAKER) (test ieqt=914) 33.3 pg 25.6-32.2 MEAN CORPUSCULAR HEMOGLOBIN CONC (BEAKER) (test ipwp=480) 33.9 GM/DL 32.2-35.5 RED CELL DISTRIBUTION WIDTH (BEAKER) (test tjcd=860) 14.7 % 11.7-14.4 PLATELET COUNT (BEAKER) (test pyae=925) 94 K/CU MM 150-450 MEAN PLATELET VOLUME (BEAKER) (test hqpn=234) 11.6 fL 9.4-12.3 NUCLEATED RED BLOOD CELLS (BEAKER) (test zaiz=540) 0 /100 WBC 0-0 NEUTROPHILS RELATIVE PERCENT (BEAKER) (test ntpj=163) 46 % LYMPHOCYTES RELATIVE PERCENT (BEAKER) (test oafj=869) 37 % MONOCYTES RELATIVE PERCENT (BEAKER) (test ptgl=005) 13 % EOSINOPHILS RELATIVE PERCENT (BEAKER) (test qswj=881) 3 % BASOPHILS RELATIVE PERCENT (BEAKER) (test upam=503) 0 % NEUTROPHILS ABSOLUTE COUNT (BEAKER) (test ljqn=053) 1.81 K/ L 1.56-6.13 LYMPHOCYTES ABSOLUTE COUNT (BEAKER) (test zllt=132) 1.46 K/ L 1.18-3.74 MONOCYTES ABSOLUTE COUNT (BEAKER) (test coqt=758) 0.53 K/ L 0.24-0.36 EOSINOPHILS ABSOLUTE COUNT (BEAKER) (test xdwb=909) 0.13 K/ L 0.04-0.36 BASOPHILS ABSOLUTE COUNT (BEAKER) (test sdgd=597) 0.01 K/ L 0.01-0.08 IMMATURE GRANULOCYTES-RELATIVE PERCENT (BEAKER) (test ogva=1729) 0 % 0-1 CBC W/PLT COUNT & AUTO [id number] 11:20:00* Test Item Value Reference Range Comments WHITE BLOOD CELL COUNT (BEAKER) (test azon=719) 3.5 K/ L 4.0-10.0 RED BLOOD CELL COUNT (BEAKER) (test mmuc=917) 3.95 M/ L 4.00-5.00 HEMOGLOBIN (BEAKER) (test mdrn=495) 13.6 GM/DL 12.0-15.0 HEMATOCRIT (BEAKER) (test ywep=721) 40.0 % 36.0-45.0 MEAN CORPUSCULAR VOLUME (BEAKER) (test wujw=925) 101.0 fL 82.0-99.0 MEAN CORPUSCULAR HEMOGLOBIN (BEAKER) (test etkc=713) 34.4 pg 27.0-33.0 MEAN CORPUSCULAR HEMOGLOBIN CONC (BEAKER) (test gxhm=223) 34.0 GM/DL 32.0-36.0 RED CELL DISTRIBUTION WIDTH (BEAKER) (test bozc=305) 14.3 % 10.3-14.2 PLATELET COUNT (BEAKER) (test ffse=364) 87 K/CU MM 150-430 MEAN PLATELET VOLUME (BEAKER) (test aelp=752) 8.8 fL 6.5-10.5 NUCLEATED RED BLOOD CELLS (BEAKER) (test sarx=817) 0 /100 WBC 0-0 NEUTROPHILS RELATIVE PERCENT (BEAKER) (test unbi=476) 53 % LYMPHOCYTES RELATIVE PERCENT (BEAKER) (test bhiv=874) 33 % MONOCYTES RELATIVE PERCENT (BEAKER) (test ilzw=498) 11 % EOSINOPHILS RELATIVE PERCENT (BEAKER) (test swhq=193) 2 % BASOPHILS RELATIVE PERCENT (BEAKER) (test kzct=460) 1 % NEUTROPHILS ABSOLUTE COUNT (BEAKER) (test zhqf=907) 1.84 K/ L 1.80-8.00 LYMPHOCYTES ABSOLUTE COUNT (BEAKER) (test gcwo=845) 1.14 K/ L 1.48-4.50 MONOCYTES ABSOLUTE COUNT (BEAKER) (test fomy=057) 0.38 K/ L 0.00-1.30 EOSINOPHILS ABSOLUTE COUNT (BEAKER) (test once=721) 0.09 K/ L 0.00-0.50 BASOPHILS ABSOLUTE COUNT (BEAKER) (test ywgo=066) 0.04 K/ L 0.00-0.20 0.00COMPREHENSIVE METABOLIC [id number] 11:06:00* Test Item Value Reference Range Comments TOTAL PROTEIN (BEAKER) (test tggw=383) 7.9 gm/dL 6.0-8.3 Specimen slightly hemolyzed ALBUMIN (BEAKER) (test foxq=4061) 3.2 g/dL 3.5-5.0 Specimen slightly hemolyzed ALKALINE PHOSPHATASE (BEAKER) (test lyyb=186) 139 U/L 40-150 BILIRUBIN TOTAL (BEAKER) (test lpjn=901) 1.2 mg/dL 0.2-1.2 Specimen slightly hemolyzed SODIUM (BEAKER) (test roou=688) 137 meq/L 136-145 POTASSIUM (BEAKER) (test gtyy=207) 3.7 meq/L 3.5-5.1 Specimen slightly hemolyzed CHLORIDE (BEAKER) (test jcca=958) 107 meq/L 98-107 CO2 (BEAKER) (test bllh=611) 23 meq/L 22-29 BLOOD UREA NITROGEN (BEAKER) (test cjpo=520) 15 mg/dL 7-21 CREATININE (BEAKER) (test kvmb=778) 0.62 mg/dL 0.57-1.25 Specimen slightly hemolyzed GLUCOSE RANDOM (BEAKER) (test uqqz=170) 119 mg/dL 70-105 CALCIUM (BEAKER) (test oiiq=659) 8.6 mg/dL 8.4-10.2 AST (SGOT) (BEAKER) (test ccwh=633) 51 U/L 5-34 Specimen slightly hemolyzed ALT (SGPT) (BEAKER) (test tyba=666) 29 U/L 6-55 Specimen slightly hemolyzed EGFR (RAFA) (test vdjx=3917) 97 mL/min/1.73 sq m ESTIMATED GFR IS NOT ACCURATE CREATININE CLEARANCE IN PREDICTING GLOMERULAR FILTRATION RATE. ESTIMATED GFR IS NOT APPLICABLE FOR DIALYSIS PATIENTS. TISSUE [id number] 16:41:00Surgical Pathology Report Case: [id number] Authorizing Provider: Colt Starkey MD Collected: 01/14/2017 0943 Ordering Location: 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 Clinical correlation is suggested,[id number], [id number] female with cirrhosis concerned for autoimmune, hepatitis as etiologyNative liver biopsyThe specimen is received in a formalin-filled container and labeled with the patient's information and labeled "[place] liver biopsy" and consists of two red-brown core biopsies rang ing from 1.6 to 18 cm, submitted entirely A1. CG/plSection shows two cores of li kali parenchyma with greater than 10 portal tracts and is adequate for evaluation . Trichrome and reticulin stain shows distortion of architecture with septal fib rosis and nodule formation. There is mild steatosis, mixed large droplet, medium droplet and small droplet type. Foci of pericellular fibrosis are seen. Rare ba llooning degeneration is seen. Glycogenated nuclei are present. Mild canalicular cholestasis is present. The fibrous septa shows mild to focally moderate lympho plasmacytic inflammation with small clusters of plasma cells. Focal grade 2 inte rface hepatitis is noted. No cholestasis is seen. The bile ducts are preserved a nd unremarkable. No periductal inflammation, granulomas or bile duct scars are s een. Iron stain is negative. No hyaline globules are seen on PAS with diastase s tain.PLATELET [id number] 08:44:00* Test Item Value Reference Range Comments PLATELET COUNT (BEAKER) (test nnnv=435) 81 K/CU MM 150-430 COMPREHENSIVE METABOLIC [id number] 08:07:00* Test Item Value Reference Range Comments TOTAL PROTEIN (BEAKER) (test jccp=974) 7.8 gm/dL 6.0-8.3 Specimen slightly hemolyzed ALBUMIN (BEAKER) (test bost=0021) 3.1 g/dL 3.5-5.0 Specimen slightly hemolyzed ALKALINE PHOSPHATASE (BEAKER) (test crfl=526) 141 U/L 40-150 BILIRUBIN TOTAL (BEAKER) (test ytpi=843) 1.9 mg/dL 0.2-1.2 Specimen slightly hemolyzed SODIUM (BEAKER) (test zjgs=417) 137 meq/L 136-145 POTASSIUM (BEAKER) (test elqf=686) 3.8 meq/L 3.5-5.1 Specimen slightly hemolyzed CHLORIDE (BEAKER) (test atgg=143) 106 meq/L 98-107 CO2 (BEAKER) (test yciz=590) 22 meq/L 22-29 BLOOD UREA NITROGEN (BEAKER) (test dyam=852) 22 mg/dL 7-21 CREATININE (BEAKER) (test bair=474) 0.61 mg/dL 0.57-1.25 Specimen slightly hemolyzed GLUCOSE RANDOM (BEAKER) (test qeoi=466) 130 mg/dL 70-105 CALCIUM (BEAKER) (test kixs=958) 8.8 mg/dL 8.4-10.2 AST (SGOT) (BEAKER) (test biwq=269) 57 U/L 5-34 Specimen slightly hemolyzed ALT (SGPT) (BEAKER) (test emci=318) 36 U/L 6-55 Specimen slightly hemolyzed EGFR (BEAKER) (test empb=5090) 99 mL/min/1.73 sq m ESTIMATED GFR IS NOT ACCURATE CREATININE CLEARANCE IN PREDICTING GLOMERULAR FILTRATION RATE. ESTIMATED GFR IS NOT APPLICABLE FOR DIALYSIS PATIENTS. Specimen slightly ictericPT/[id number] 08:00:00* Test Item Value Reference Range Comments PROTIME (BEAKER) (test bpom=247) 16.6 seconds 11.7-14.7 INR (BEAKER) (test vrhi=288) 1.4 <=5.9 PARTIAL THROMBOPLASTIN TIME (BEAKER) (test gska=192) 37.8 seconds 22.5-36.0 RECOMMENDED COUMADIN/WARFARIN INR THERAPY RANGESSTANDARD DOSE: 2.0 - 3.0 Inclu lea: PROPHYLAXIS for venous thrombosis, systemic embolization; TREATMENT for pedrito ous thrombosis and/or pulmonary embolus.HIGH RISK: Target INR is 2.5-3.5 for pat ients with mechanical heart valves.NICK TITER AND [id number] 13:45:00* Test Item Value Reference Range Comments NICK TITER (BEAKER) (test gznq=2925) >=:2560 NICK PATTERN (BEAKER) (test mwmg=9692) Homogeneous ANTI-NUCLEAR ANTIBODY (NICK)2016-11-26 13:31:00* Test Item Value Reference Range Comments ANTI-NUCLEAR ANTIBODY (NICK) (BEAKER) (test zjlg=252) 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), TUMOR [id number] 16:06:00* Test Item Value Reference Range Comments ALPHA-FETOPROTEIN (BEAKER) (test rndd=0966) 5.7 ng/mL <10.0 Effective 06/27/2014: Reference Range ChangeNew: <10.0 Previous: 0.0-8.0 HEPATIC FUNCTION [id number] 15:45:00* Test Item Value Reference Range Comments TOTAL PROTEIN (BEAKER) (test xclt=808) 8.2 gm/dL 6.0-8.3 ALBUMIN (BEAKER) (test knyb=4322) 3.2 g/dL 3.5-5.0 BILIRUBIN TOTAL (BEAKER) (test mvue=292) 0.9 mg/dL 0.2-1.2 BILIRUBIN DIRECT (BEAKER) (test ulgy=247) 0.4 mg/dL 0.1-0.5 ALKALINE PHOSPHATASE (BEAKER) (test hvwa=606) 136 U/L 40-150 AST (SGOT) (BEAKER) (test oqkp=497) 53 U/L 5-34 ALT (SGPT) (BEAKER) (test sabd=596) 34 U/L 6-55 BASIC METABOLIC [id number] 15:45:00* Test Item Value Reference Range Comments SODIUM (BEAKER) (test jayt=301) 136 meq/L 136-145 POTASSIUM (BEAKER) (test gcxr=404) 3.6 meq/L 3.5-5.1 CHLORIDE (BEAKER) (test mqqp=153) 104 meq/L 98-107 CO2 (BEAKER) (test esja=565) 24 meq/L 22-29 BLOOD UREA NITROGEN (BEAKER) (test hiet=290) 14 mg/dL 7-21 CREATININE (BEAKER) (test trqg=932) 0.66 mg/dL 0.57-1.25 GLUCOSE RANDOM (BEAKER) (test dgua=372) 260 mg/dL 70-105 CALCIUM (BEAKER) (test xqih=621) 9.2 mg/dL 8.4-10.2 EGFR (BEAKER) (test oytl=7397) 90 mL/min/1.73 sq m ESTIMATED GFR IS NOT ACCURATE CREATININE CLEARANCE IN PREDICTING GLOMERULAR FILTRATION RATE. ESTIMATED GFR IS NOT APPLICABLE FOR DIALYSIS PATIENTS. IMMUNOGLOBULIN G (IGG)2016-11-21 15:44:00* Test Item Value Reference Range Comments IMMUNOGLOBULIN G (IGG) (BEAKER) (test kkav=377) 2682 mg/dL 540-1822 IMMUNOGLOBULIN M (IGM)2016-11-21 15:44:00* Test Item Value Reference Range Comments IMMUNOGLOBULIN M (IGM) (BEAKER) (test ljih=885) 128 mg/dL 22-293 PROTHROMBIN TIME/[id number] 15:31:00* Test Item Value Reference Range Comments PROTIME (BEAKER) (test brvl=660) 16.0 seconds 11.7-14.7 INR (BEAKER) (test nepw=918) 1.3 <=5.9 RECOMMENDED COUMADIN/WARFARIN INR THERAPY RANGESSTANDARD DOSE: 2.0 - 3.0 Inclu lea: PROPHYLAXIS for venous thrombosis, systemic embolization; TREATMENT for pedrito ous thrombosis and/or pulmonary embolus.HIGH RISK: Target INR is 2.5-3.5 for pat ients with mechanical heart valves.CBC W/PLT COUNT & AUTO [id number] 15:30:00* Test Item Value Reference Range Comments WHITE BLOOD CELL COUNT (BEAKER) (test zune=040) 3.3 K/ L 4.0-10.0 RED BLOOD CELL COUNT (BEAKER) (test tnum=717) 3.94 M/ L 4.00-5.00 HEMOGLOBIN (BEAKER) (test wrgd=439) 13.3 GM/DL 12.0-15.0 HEMATOCRIT (BEAKER) (test pndw=987) 40.1 % 36.0-45.0 MEAN CORPUSCULAR VOLUME (BEAKER) (test gpkx=211) 102.0 fL 82.0-99.0 MEAN CORPUSCULAR HEMOGLOBIN (BEAKER) (test huns=475) 33.7 pg 27.0-33.0 MEAN CORPUSCULAR HEMOGLOBIN CONC (BEAKER) (test ejmm=960) 33.2 GM/DL 32.0-36.0 RED CELL DISTRIBUTION WIDTH (BEAKER) (test bddm=496) 13.6 % 10.3-14.2 PLATELET COUNT (BEAKER) (test ftkm=594) 87 K/CU MM 150-430 MEAN PLATELET VOLUME (BEAKER) (test qybs=585) 8.9 fL 6.5-10.5 NUCLEATED RED BLOOD CELLS (BEAKER) (test ijfk=998) 0 /100 WBC 0-0 NEUTROPHILS RELATIVE PERCENT (BEAKER) (test gwxk=714) 55 % LYMPHOCYTES RELATIVE PERCENT (BEAKER) (test jroc=531) 30 % MONOCYTES RELATIVE PERCENT (BEAKER) (test fujw=196) 12 % EOSINOPHILS RELATIVE PERCENT (BEAKER) (test caep=509) 2 % BASOPHILS RELATIVE PERCENT (BEAKER) (test owuq=592) 0 % NEUTROPHILS ABSOLUTE COUNT (BEAKER) (test udsp=627) 1.82 K/ L 1.80-8.00 LYMPHOCYTES ABSOLUTE COUNT (BEAKER) (test ogbu=706) 0.99 K/ L 1.48-4.50 MONOCYTES ABSOLUTE COUNT (BEAKER) (test ympi=686) 0.41 K/ L 0.00-1.30 EOSINOPHILS ABSOLUTE COUNT (BEAKER) (test mjfq=259) 0.08 K/ L 0.00-0.50 BASOPHILS ABSOLUTE COUNT (BEAKER) (test frxt=713) 0.01 K/ L 0.00-0.20 0.00
--- OUTSIDE RECORDS SUMMARY | 2018-09-03 06:33 | XMS REPORT | Summary of Care ---
Author Author [facility] [place] Address Unknown Phone Unavailable Encounter HQ Tj_zac(FIN) [id number] Date(s): 11/03/17 - 11/04/17 JO[facility] Cel[facility] [place] [address], [address] [place], [place] [address] [phone] Vital Signs No data available for this [...]
--- OUTSIDE RECORDS SUMMARY | 2018-09-03 06:33 | XMS REPORT | Summary of Care ---
Author Author [facility] Organization [facility] Address Unknown Phone Unavailable Encounter HQ Nehemiasr_zac(FIN) [id number] Date(s): 02/05/18 - 02/06/18 [facility] Neuro[facility] [address] [address], [address] [place] [phone] Vital Signs No data available for this [...]
--- OUTSIDE RECORDS SUMMARY | 2018-09-03 06:33 | XMS REPORT | Summary of Care ---
Author Author [facility] Address Unknown Phone Unavailable Encounter HQ Tj_zac(FIN) [id number] Date(s): 11/03/17 - 11/04/17 JOSE Celestin [place] [address], [address] [place] [address] [phone] Vital Signs No data available for this [...]
--- OUTSIDE RECORDS SUMMARY | 2018-09-03 06:33 | XMS REPORT | Summary of Care ---
Author Author [facility] Address Unknown Phone Unavailable Encounter HQ Tj_zac(FIN) [id number] Date(s): 11/02/17 - 11/02/17 [facility] Attending Physician: Joya Thorne DO Vital Signs [...]
[2018-09-03 09:45] VITALS: BP 108/64
--- NOTE | 2018-09-03 17:09 | Diagnostic Imaging Report ---
Bilateral retrograde urography Indications: UTI Comparison: None RADIATION DOSE: Fluoroscopy Time: 00:00:22 hh:mm:ss Dose (Kerma) Area Product: 222.56 cGycm2 Air Kerma (AK) value has been reviewed. It is below the limits set by the Radiation Protocol Committee (RPC) committee. Findings: Contrast was injected into the left ureter in a retrograde fashion.The caliber of the left ureter appear normal. Left renal collecting system also filled unremarkably. Contrast was injected into the right ureter in a retrograde fashion.The caliber of the right ureter appear normal. Right renal collecting system also filled unremarkably. Other: There are bilateral pedicle screws and vertical stabilizing bars in the lower lumbar spine. Visualized hardware is intact. IMPRESSION: Unremarkable bilateral retrograde urography. Signed by: Dr. Yamilet Spence MD on 09/03/2018 5:06 PM
--- NOTE | 2018-09-06 09:01 | Operative Report ---
DATE OF PROCEDURE: September 03, 2018 PREOPERATIVE DIAGNOSES 1. Multiple chronic urinary tract infections. 2. Clinical signs and symptoms of interstitial cystitis. POSTOPERATIVE DIAGNOSES 1. Multiple chronic urinary tract infections. 2. Clinical signs and symptoms of interstitial cystitis. PROCEDURES 1. Cystourethroscopy and hydrodistention (entirely separate procedure for clinical and symptoms of interstitial cystitis). 2. Cystourethroscopy with left ureteral catheterization and left retrograde pyelogram (separate procedure for microscopic hematuria and urinary tract infections). 3. Cystourethroscopy with right ureteral catheterization and right retrograde pyelogram (separate procedure performed for multiple urinary tract infections). 4. Supervision of fluoroscopy. 5. Interpretation of retrograde ureteropyelography. ANESTHESIA: General. ESTIMATED BLOOD LOSS: Minimal. COMPLICATIONS: None. INDICATIONS: Ms Pearson is a 68-year-old female patient with a history of multiple chronic urinary tract infections, and clinical symptoms of interstitial cystitis. She and I had a long discussion about alternatives, risks and benefits, including doing nothing, cystoscopy, IVP, hydrodistention, and retrograde pyelograms and renal ultrasound. Due to the complex nature, she elected to proceed with hydrodistention and retrograde pyelograms. She voiced understanding of the options, alternatives, risks, and benefits and elected to proceed. PROCEDURE IN DETAIL: After informed consent was obtained, the patient was taken to the operating suite. She was placed supine on the table and underwent general anesthesia by the anesthesia service. She was placed in the dorsal lithotomy position and sterilely prepped and draped for cystoscopy. A grade 4 cystocele was noted, grade 3-4 prolapse, positive vaginal atrophy. The urethra was catheterized with a 22.5-Nigerien cystoscope and panendoscopy of the bladder revealed no tumors and no stones. Both ureteral orifices were within normal anatomic location and position and seen to efflux clear urine. Hydrodistention was performed to the capacity of 800 mL. No glomerulations. No Donnell's ulcers. Bilateral retrograde pyelogram was performed, which were normal. The bladder was drained. The patient was awakened from anesthesia and transported to the recovery room in excellent condition. SUPERVISION OF FLUOROSCOPY, INTERPRETATION OF RETROGRADE URETERAL PYELOGRAPHY: I was present throughout the entire procedure and I supervised the use of fluoroscopy as no radiologist was present at any time during this procedure. Attention was turned toward the left and right ureteral orifices, catheterized with an 8-Nigerien cone-tipped catheter. In a retrograde fashion, contrast was injected. It revealed delicate ureters, delicate pelviceal systems. No evidence of filling defects. No evidence of hydronephrosis. IMPRESSION: Normal retrograde pyelograms. Job#: [id number] RI
== END | disposition home or self-care (01) ==
LOC: OR 06:29
PROVIDERS: ATTEND Urology
DX: N39.0 Urinary tract infection, site not specified (principal); N81.3 Complete uterovaginal prolapse; N95.2 Postmenopausal atrophic vaginitis; E11.9 Type 2 diabetes mellitus without complications; I10 Essential (primary) hypertension; K74.60 Unspecified cirrhosis of liver; K21.9 Gastro-esophageal reflux disease without esophagitis; K44.9 Diaphragmatic hernia without obstruction or gangrene; I83.90 Asymptomatic varicose veins of unspecified lower extremity; M19.90 Unspecified osteoarthritis, unspecified site; R53.1 Weakness; Z01.810 Encounter for preprocedural cardiovascular examination; Z01.812 Encounter for preprocedural laboratory examination; Z79.84 Long term (current) use of oral hypoglycemic drugs; Z68.32 Body mass index [BMI] 32.0-32.9, adult
CPT/HCPCS: 36415 ×2; 52005; 74420; 80053; 82948; 85025; 85610; 85730; 93005; C1758; J0696; J2001; J2250; J2405; J2704; Q9967